=== PATIENT | male | born 1940 | race Caucasian/White ===

== ENCOUNTER 2016-10-21 07:36 | Inpatient (IN) | payer BC, OTHER ==
[~2016-10-21] VITALS: Ht 162.6 cm; Wt 59.4 kg
[~2016-10-21 07:36] MED LIST: ASPI81TA28 PO; ATEN-173 PO; MULT-190 PO; MULT-839 PO; PRLSR20 PO; VTMD1000 PO
--- NOTE | 2016-10-21 08:00 | EMERGENCY ROOM VISIT NOTE ---
History Report prepared by Iris: Ronaldo Bravo Under the Supervision of: Dr. Mirza Koch M.D. First contact with patient: 07:44 Chief Complaint: RECTAL BLEEDING Stated Complaint: BLOOD IN STOOL Nursing Triage Summary: Pt states he noticed dark tarry stools, started yesterday. History of Present Illness The patient is a 76 year old male who presents to the Emergency Room with complaints of rectal bleeding that occurred yesterday. He is currently not in any pain at the moment. He noticed black, tarry stools when he had a bowel movement yesterday. There was also blood in his stool as well. He is very chilled at the moment. He has never had a GI bleed before. He takes Aspirin everyday. He currently has a pacemaker/defibrillator in place. He needs to have his gallbladder removed, but he cannot secondary to his heart's condition. Source of History: patient Onset: yesterday Position: other (GI) Symptom Intensity: moderate Quality: other (Blood in Stool) Timing: constant Associated Symptoms: + chills, + melena, No abdominal pain Review of Systems See HPI for pertinent positives & negatives. A total of 10 systems reviewed and were otherwise negative. Past Medical & Surgical Medical Problems: (1) GI bleed Surgical Problems: (1) History of open heart surgery Family History Omitted secondary to age Social History Smoking Status: Former Smoker Drug Use: none Marital Status: Housing Status: lives with family Occupation Status: retired Current/Historical Medications Scheduled Aspirin (Aspirin Ec), 81 MG PO DAILY Atorvastatin (Lipitor), 40 MG PO HS Cholecalciferol (Vitamin D3), 1 TAB PO DAILY Furosemide (Lasix), 20 MG PO DAILY Lisinopril (Zestril), 2.5 MG PO MWF Metoprolol Succinate (Toprol Xl), 25 MG PO HS Multivitamin (Multivitamin), 1 TAB PO DAILY Nitroglycerin (Nitro-Dur), 1 PATCH TD ONAMOFFPM Ocuvite Preservision (Ocuvite Preservision), 1 TAB PO BID Omeprazole (Prilosec), 20 MG PO BID Sennosides-Docusate Sodium (Senna S), 2 TAB PO HS Spironolactone (Aldactone), 25 MG PO DAILY Allergies Coded Allergies: No Known Allergies (Unverified , 5/7/17) Physical Exam Vital Signs Date Time Temp Pulse Resp B/P Pulse Ox O2 Delivery O2 Flow Rate FiO2 10/21/16 08:33 72 16 163/66 98 Room Air 10/21/16 08:31 98 Room Air 10/21/16 07:39 36.4 101 20 116/57 97 Room Air Physical Exam GENERAL: Patient is a healthy-appearing well-nourished HEAD: Normocephalic atraumatic EYES: Ocular movements intact pupils equal and react to light OROPHARYNX mucous membranes are moist no exudates present no erythema or edema present NECK: Supple no nuchal rigidity CHEST: Good equal expansion LUNGS: Clear and equal to auscultation CARDIAC: Normal S1 and S2 ABDOMEN: Soft nontender no guarding BACK: No CVA tenderness RECTUM: Dark red blood, grossly positive. EXTREMITIES: No pain upon palpation normal muscle strength in all groups no clubbing cyanosis or edema NEURO: Patient is following commands is answering questions appropriately. Alert and oriented x3 Cranial Nerves 2-12 grossly intact Medical Decision & Procedures Laboratory Results 10/21/16 08:05 Red Blood Count 3.27, Mean Corpuscular Volume 88.1, Mean Corpuscular Hemoglobin 29.4, Mean Corpuscular Hemoglobin Concent 33.3, Mean Platelet Volume 10.8, Neutrophils (%) (Auto) 81.4, Lymphocytes (%) (Auto) 6.5, Monocytes (%) (Auto) 10.9, Eosinophils (%) (Auto) 0.6, Basophils (%) (Auto) 0.2, Neutrophils # (Auto ) 8.87, Lymphocytes # (Auto) 0.71, Monocytes # (Auto) 1.19, Eosinophils # (Auto ) 0.06, Basophils # (Auto) 0.02 10/21/16 08:05 Test 10/21/16 08:05 White Blood Count 10.89 K/uL (4.8-10.8) Red Blood Count 3.27 M/uL (4.7-6.1) Hemoglobin 9.6 g/dL (14.0-18.0) Hematocrit 28.8 % (42-52) Mean Corpuscular Volume 88.1 fL (80-100) Mean Corpuscular Hemoglobin 29.4 pg (25-34) Mean Corpuscular Hemoglobin Concent 33.3 g/dl (32-36) Platelet Count 212 K/uL (130-400) Mean Platelet Volume 10.8 fL (7.4-10.4) Neutrophils (%) (Auto) 81.4 % Lymphocytes (%) (Auto) 6.5 % Monocytes (%) (Auto) 10.9 % Eosinophils (%) (Auto) 0.6 % Basophils (%) (Auto) 0.2 % Neutrophils # (Auto) 8.87 K/uL (1.4-6.5) Lymphocytes # (Auto) 0.71 K/uL (1.2-3.4) Monocytes # (Auto) 1.19 K/uL (0.11-0.59) Eosinophils # (Auto) 0.06 K/uL (0-0.5) Basophils # (Auto) 0.02 K/uL (0-0.2) RDW Standard Deviation 48.6 fL (36.4-46.3) RDW Coefficient of Variation 15.3 % (11.5-14.5) Immature Granulocyte % (Auto) 0.4 % Immature Granulocyte # (Auto) 0.04 K/uL (0.00-0.02) Prothrombin Time 11.3 SECONDS (9.0-12.0) Prothromb Time International Ratio 1.1 (0.9-1.1) Activated Partial Thromboplast Time 24.7 SECONDS (21.0-31.0) Partial Thromboplastin Ratio 1.0 Anion Gap 9.0 mmol/L (3-11) Estimated GFR () 93.2 Estimated GFR (Non- 80.4 BUN/Creatinine Ratio 32.5 (10-20) Calcium Level 8.9 mg/dl (8.5-10.1) Total Bilirubin 0.3 mg/dl (0.2-1) Direct Bilirubin < 0.1 mg/dl (0-0.2) Aspartate Amino Transf (AST/SGOT) 18 U/L (15-37) Alanine Aminotransferase (ALT/SGPT) 19 U/L (12-78) Alkaline Phosphatase 70 U/L (45-117) Total Creatine Kinase 50 U/L (39-308) Creatine Kinase MB 3.1 ng/ml (0.5-3.6) Creatine Kinase MB Ratio 6.2 (0-3.0) Total Protein 6.8 gm/dl (6.4-8.2) Albumin 3.1 gm/dl (3.4-5.0) Lipase 335 U/L (73-393) Labs reviewed by ED physician. Medications Administered Medications (Trade) Dose Ordered Sig/Milton Route Start Time Stop Time Status Last Admin Dose Admin Pantoprazole Sodium 80 mg/ Dextrose 120 ml @ 480 mls/hr TODAY@0815 IV 10/21/16 08:15 10/21/16 08:29 DC 10/21/16 08:31 480 MLS/HR Pantoprazole Sodium/Dextrose (Protonix Inj/D5 100ml) 100 ml @ 20 mls/hr Q5H IV 10/21/16 08:30 10/21/16 13:29 DC 10/21/16 08:31 20 MLS/HR ECG Indication: weakness Rate (beats per minute): 74 Rhythm: normal sinus Findings: no acute ischemic change, no ectopy ED Course 0744: Past medical records reviewed. The patient was evaluated in room B3. A complete history and physical examination was performed. 0758: Ordered Pantoprazole Sodium 1 ea IV 0815: Ordered Pantoprazole Sodium 80 mg/Dextrose 120 ml @ 480 mls/hr IV 0830: Ordered Pantoprazole Sodium 40 mg/Dextrose 100 ml @ 20 mls/hr IV 0906: Upon reexamination the patient is resting. I discussed results and treatment plan with the patient. He verbalizes agreement and understanding. I spoke with Dr. Cope from the [facility] Hospitalist Service. The patient will be evaluated for further management. Medical Decision Differential diagnosis: Etiologies such as diverticulosis, AVM, coagulopathy, colitis, inflammatory bowel disease, malignancy, Alma-Singh tear, esophagitis, peptic ulcer disease , variceal bleed, gastritis, epistaxis, fissure, hemorrhoids, as well as others were entertained. This is a 76-year-old who presents to the emergency department complaining of rectal bleeding. The patient reports she's had dark tarry stools for the last several days and he has a history of Alcala's esophagus. In addition the patient had prior red blood along with multiple clots. For this reason the patient was given normal saline bolus and started on a proton bolus and drip. His hemoglobin here is 9. He was typed and screened. I did discuss the case with the hospitalist service who agreed to admit the patient. Patient was in agreement with the treatment plan. Consults Time Called: 900 Consulting Physician: Dr. Prisca WANG Returned Call: [phone] He will be evaluating the patient for further management. Impression Primary Impression: Rectal bleed Scribe Attestation The scribe's documentation has been prepared under my direction and personally reviewed by me in its entirety. I confirm that the note above accurately reflects all work, treatment, procedures, and medical decision making performed by me. Departure Information Dispostion Being Evaluated By Hospitalist Referrals Payam Moser D.O. Pulmonary (PCP) Patient Instructions My [facility]
[2016-10-21] MEDS ORDERED: CHOL1000 PO (08:09)
[2016-10-21] MEDS ORDERED: MULT-190 PO (08:09)
[2016-10-21] MEDS ORDERED: MULT-506 PO (08:09)
[2016-10-21] MEDS ORDERED: SENN8.6T9 PO (08:09)
[2016-10-21] MEDS ORDERED: PANTOprazole INJ 80 MG in DEXTROSE 5% 100ML IV SCH (08:15)
[2016-10-21] MEDS ORDERED: PANTOprazole INJ 40 MG in DEXTROSE 5% 100ML IV SCH (08:30)
[2016-10-21 08:34] LABS: BASO % 0.2 %; BASO ABS # 0.02 K/uL (0-0.2); COMPLETE YES; EOS % 0.6 %; HEMATOCRIT 28.8 % (42-52); IG% 0.4 %; LYMPH % 6.5 %; LYMPH ABS # 0.71 K/uL (1.2-3.4); MEAN CELL VOLUME 88.1 fL (80-100); MEAN CORPUSCULAR HEMOGLOBIN 29.4 pg (25-34); MEAN CORPUSCULAR HGB CONC 33.3 g/dl (32-36); MEAN PLATELET VOLUME 10.8 fL (7.4-10.4); MONO % 10.9 %; NEUT % 81.4 %; PLATELET COUNT 212 K/uL (130-400); RED BLOOD COUNT 3.27 M/uL (4.7-6.1); WHITE BLOOD COUNT 10.89 K/uL (4.8-10.8)
[2016-10-21 08:52] LABS: CALCIUM 8.9 mg/dl (8.5-10.1)
[2016-10-21 08:54] LABS: ALT/SGPT 19 U/L (12-78); BLOOD UREA NITROGEN 30 mg/dl (7-18); BUN/CREATININE RATIO 32.5 (10-20); CARBON DIOXIDE 28 mmol/L (21-32); CHLORIDE 103 mmol/L (98-107); CREATININE 0.91 mg/dl (0.60-1.40); GLUCOSE 120 mg/dl (70-99); POTASSIUM 3.8 mmol/L (3.5-5.1); SODIUM 140 mmol/L (136-145)
[2016-10-21 08:58] LABS: ALKALINE PHOSPHATASE 70 U/L (45-117); AST/SGOT 18 U/L (15-37); CKMB/CK RATIO 6.2 (0-3.0)
[2016-10-21 08:59] LABS: INR 1.1 (0.9-1.1); PROTHROMBIN TIME (PATIENT) 11.3 SECONDS (9.0-12.0)
[2016-10-21] MEDS ORDERED: SPIR25TA PO (09:13)
[2016-10-21] MEDS ORDERED: LISI-789 PO (09:13)
[2016-10-21] MEDS ORDERED: ATOR-24 PO (09:13)
[2016-10-21] MEDS ORDERED: FURO-85 PO (09:13)
[2016-10-21] MEDS ORDERED: NITR0.2D16 TD (09:13)
[2016-10-21] MEDS ORDERED: METO25TA3 PO (09:13)
[2016-10-21] MEDS ORDERED: SENN-91 PO (09:13)
[2016-10-21] MEDS ORDERED: MAGNESIUM HYDROXIDE SUSP 30 ML UDC PO PRN (09:15)
[2016-10-21] MEDS ORDERED: ALUMINUM/MAGNESIUM/SIMETH (MAALOX MAX) 30 ML UDC PO PRN (09:15)
[2016-10-21] MEDS ORDERED: POLYETHYLENE (MIRALAX) 17 GM PACK PO PRN (09:15)
[2016-10-21 11:23] VITALS: BP 163/85; PULSE 74; TEMP 36.6; O2SAT 96; Ht 162.6 cm; Wt 59.4 kg
--- NOTE | 2016-10-21 11:58 | History and Physical ---
History & Physical Date & Time of Service: October 21, 2016 at 11:51 Chief Complaint: Gi Bleed Primary Care Physician: Odalis Thomas M.D. Past Medical/Surgical History Surgical Problems: (1) History of open heart surgery Status: Resolved Social History Smoking Status: Former Smoker Drug Use: none Marital Status: Occupational Status: retired Allergies Coded Allergies: No Known Allergies (Unverified , 10/21/16) Home Medications Scheduled Aspirin (Aspirin Ec), 81 MG PO DAILY Atorvastatin (Lipitor), 40 MG PO HS Cholecalciferol (Vitamin D3), 1 TAB PO DAILY Furosemide (Lasix), 20 MG PO DAILY Lisinopril (Zestril), 2.5 MG PO MWF Metoprolol Succinate (Toprol Xl), 25 MG PO HS Multivitamin (Multivitamin), 1 TAB PO DAILY Nitroglycerin (Nitro-Dur), 1 PATCH TD ONAMOFFPM Ocuvite Preservision (Ocuvite Preservision), 1 TAB PO BID Omeprazole (Prilosec), 20 MG PO BID Sennosides-Docusate Sodium (Senna S), 2 TAB PO HS Spironolactone (Aldactone), 25 MG PO DAILY Physical Exam Vital Signs Date Time Temp Pulse Resp B/P Pulse Ox O2 Delivery O2 Flow Rate FiO2 10/21/16 11:23 36.6 74 22 163/85 96 Room Air 10/21/16 10:28 72 16 164/83 100 10/21/16 09:34 73 16 173/82 99 Room Air 10/21/16 08:33 72 16 163/66 98 Room Air 10/21/16 08:31 98 Room Air 10/21/16 07:39 36.4 101 20 116/57 97 Room Air Diagnostics Laboratory Results Results Past 24 Hours Test 10/21/16 08:05 10/21/16 09:14 Range/Units White Blood Count 10.89 4.8-10.8 K/uL Red Blood Count 3.27 4.7-6.1 M/uL Hemoglobin 9.6 14.0-18.0 g/dL Hematocrit 28.8 42-52 % Mean Corpuscular Volume 88.1 80-100 fL Mean Corpuscular Hemoglobin 29.4 25-34 pg Mean Corpuscular Hemoglobin Concent 33.3 32-36 g/dl Platelet Count 212 130-400 K/uL Mean Platelet Volume 10.8 7.4-10.4 fL Neutrophils (%) (Auto) 81.4 % Lymphocytes (%) (Auto) 6.5 % Monocytes (%) (Auto) 10.9 % Eosinophils (%) (Auto) 0.6 % Basophils (%) (Auto) 0.2 % Neutrophils # (Auto) 8.87 1.4-6.5 K/uL Lymphocytes # (Auto) 0.71 1.2-3.4 K/uL Monocytes # (Auto) 1.19 0.11-0.59 K/uL Eosinophils # (Auto) 0.06 0-0.5 K/uL Basophils # (Auto) 0.02 0-0.2 K/uL RDW Standard Deviation 48.6 36.4-46.3 fL RDW Coefficient of Variation 15.3 11.5-14.5 % Immature Granulocyte % (Auto) 0.4 % Immature Granulocyte # (Auto) 0.04 0.00-0.02 K/uL Prothrombin Time 11.3 9.0-12.0 SECONDS Prothromb Time International Ratio 1.1 0.9-1.1 Activated Partial Thromboplast Time 24.7 21.0-31.0 SECONDS Partial Thromboplastin Ratio 1.0 Sodium Level 140 136-145 mmol/L Potassium Level 3.8 3.5-5.1 mmol/L Chloride Level 103 98-107 mmol/L Carbon Dioxide Level 28 21-32 mmol/L Anion Gap 9.0 3-11 mmol/L Blood Urea Nitrogen 30 7-18 mg/dl Creatinine 0.91 0.60-1.40 mg/dl Estimated GFR () 93.2 Estimated GFR (Non- 80.4 BUN/Creatinine Ratio 32.5 10-20 Random Glucose 120 70-99 mg/dl Calcium Level 8.9 8.5-10.1 mg/dl Total Bilirubin 0.3 0.2-1 mg/dl Direct Bilirubin < 0.1 0-0.2 mg/dl Aspartate Amino Transf (AST/SGOT) 18 15-37 U/L Alanine Aminotransferase (ALT/SGPT) 19 12-78 U/L Alkaline Phosphatase 70 45-117 U/L Total Creatine Kinase 50 39-308 U/L Creatine Kinase MB 3.1 0.5-3.6 ng/ml Creatine Kinase MB Ratio 6.2 0-3.0 Troponin I 0.017 0-0.045 ng/ml Total Protein 6.8 6.4-8.2 gm/dl Albumin 3.1 3.4-5.0 gm/dl Lipase 335 73-393 U/L Impression Assessment and Plan obs # [id number] extensive discussion with family - were exceedingly anxious about him surviving any procedures an repeatedly emphasized that he can't have anesthesia. explained that with what we're seeing now, management of the bleed is likely withholding asa an following, and that it would be quite unlikely that any procedures would be necessary. extensive time discussing with family, answered all questions to the best of my ability and to their satisfaction Advanced Directives Existing Living Will: No Existing Power of Bdr: No VTE Prophylaxis VTE Risk Assessment Done? Y/N: Yes Risk Level: Moderate Given or contraindicated: Contraindicated
[2016-10-21] MEDS: NITROGLYCERIN 0.2 MG/HR PATCH TD SCH (12:00)
[2016-10-21] MEDS ORDERED: IV FLUIDS COMPLETED PRN (13:15)
--- NOTE | 2016-10-21 13:41 | HISTORY & PHYSICAL EXAMINATION ---
DATE OF ADMISSION: 10/21/2016 CHIEF COMPLAINT: Rectal bleeding. HISTORY OF PRESENT ILLNESS: The patient is a pleasant 76-year-old male accompanied by his family. It apparently started yesterday morning with black tarry bowel movement. Since that time, he has had probably 5 or more black tarry bowel movements and 1 was bright red blood with clots. He went to Urgent Care yesterday at the direction of his family. Urgent Care wanted him to come to the ER. He noted he felt fine, so he declined and then with this morning's bright red blood, the family brought him to the ER. Here, he was fortunately found to be hemodynamically stable. He has a hemoglobin of 9.6 with no clear baseline and because of the ongoing bleeding, we were asked to see him for ongoing evaluation and treatment. REVIEW OF SYSTEMS: Surprisingly negative. He does not feel weak, lightheaded, dizzy, or diaphoretic. His family notes that he looks a little pale. He does not seem to feel pale. He has no anginal symptoms. No chest pain, no chest pressure, and no shortness of breath. He has no abdominal pain, no nausea, no vomiting, and no hematemesis. He does note that the diarrhea this morning happened after he drank a Boost. He drank a Boost and shortly thereafter he had diarrhea. On directed questioning, he did not have nausea after this either. Review of systems is otherwise entirely negative except for as above. PAST MEDICAL HISTORY: Difficult to discern. 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 MEDICATIONS: Reviewed with the family and unfortunately, his home medication list does not have any doses on it. He takes an aspirin daily, Lipitor daily, vitamin D daily, Lasix daily, lisinopril daily, metoprolol XL daily, multivitamin daily, nitroglycerin patch daily, Ocuvite daily, omeprazole b.i.d., senna at bedtime, and spironolactone daily. PAST SURGICAL HISTORY: He had a heart catheterization done here showing a fairly severe coronary artery disease. He was sent to [facility], this is in 2014. It sounds like they tried to do a high risk stenting due to probably not being a viable candidate for CABG and to the best he knows, they were not able to stent or balloon any vessels, although again he is surprisingly unclear on this. He has had a pacer defibrillator placed, colonoscopy about 7 years ago they believe was clean and an EGD showing Alcala's esophagus. 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 He is . He lives with his . He has a very supportive family. FAMILY HISTORY: His mom and dad both of "heart." Mom at 90 and dad at 79. ALLERGIES: No known drug allergies. PHYSICAL EXAMINATION: VITAL SIGNS: His initial vitals showed a temp of 36.4, pulse of 101 that quickly dropped into the 70s where it has been for the last 4 hours, respiratory rate 20, blood pressure 116/57 initially and then later bumps into the 160s systolic and has been in the 160-170 systolic range since. His diastolics between 66 and 85 and he is 97%-100% on room air. GENERAL: He is awake, alert, and oriented x3, pleasant, in no acute distress. HEENT: Normocephalic, atraumatic. Mucous membranes are moist. CARDIOVASCULAR: Regular without rubs, murmurs, or gallops. LUNGS: Clear to auscultation bilaterally. No rales, rhonchi, or wheezes with good effort. ABDOMEN: Soft, nondistended, and nontender, no masses or organomegaly. EXTREMITIES: Without cyanosis, clubbing or edema. No calf tenderness. SKIN: Shows no rashes, no pallor or icterus. NEUROLOGIC: Shows cranial nerves II through XII to be grossly intact. Gross motor and sensory are intact. MUSCULOSKELETAL: Yields no gross lesions. MENTAL STATUS: Shows fair recent and remote recall. Normal mood and affect. Fair judgment and insight. LABS AND DIAGNOSTICS: His CBC shows a white count of 10.89 with a hemoglobin of 9.6, uncertain baseline. His MCV is 88.1 and platelets of 212. Complete metabolic panel with sodium 140, potassium 3.8, chloride 103, CO2 of 28, BUN 30, creatinine 0.91, calcium 8.9, and glucose 120. Total bili 0.3 with a direct of less than 0.1, AST 18, ALT 19, and alkaline phosphatase 70. CK total was 50 with an MB of 3.1. Troponin 0.017. Total protein 6.8, albumin 3.1, and lipase 335. PT of 11.3 and PTT 24.7. EKG appears to be sinus at 74, probably borderline LVH, no ischemic changes. Does have nonspecific T-wave flattening in aVL. ASSESSMENT AND PLAN: 1. Gastrointestinal bleed. Given his absolute lack of nausea, vomiting, abdominal pain, abdominal tenderness to palpation and his overall hemodynamic stability, this appears to be almost certainly a lower GI bleed, with the pattern of bleeding, it is most likely diverticular versus less likely arteriovenous malformation versus even less likely malignant related. For now we will hold his aspirin, get 2 IV sites, have him typed and screened, follow him clinically and follow his hemoglobin. Fortunately, at this point after the bleeding has been going on for 24 hours, he appears to be very stable, so I suspect this will resolve simply with stopping his aspirin and at this point there are no indications for any interventions. We discussed the typical role of a followup colonoscopy mostly to rule out malignancy and less important to look at the site of the bleeding if possible, but discussed that given his severity of heart disease, it may or may not be in his benefit, particularly given that he had a scope with no signs of malignancy, just 7 years ago and also because of the fact that even if it was bleeding from a malignancy he almost certainly would not be able to tolerate any further workup or treatment. He and the family expressed good understanding of this. We will be keeping him med-surge, clear liquid diet for now and then once he is showing good stability probably advance him to a low-fat diet hopefully by as soon as this evening. Follow hemoglobin q. 6 hours, follow his vitals, follow his clinical status. What will be difficult is with his severe coronary disease deciding when it is most appropriate to resume the aspirin, at this point in time, though it needs to be held. 2. Severe coronary disease, continue his home meds, hopefully will be able to get a hold of what his actual doses are, except for obviously as above, holding off on the aspirin until it is safe to resume. I discussed with the patient and family that given his coronary disease, probably somewhere in a few days to a few weeks from now the aspirin will need to at least have a trial of resumption, but at that point in time, it is also possible he could have recurrent bleeding, but this will be determined as he continues to progress. 3. Severe systolic ischemic cardiomyopathy with chronic appearing to be compensated congestive heart failure. Given that he has got a good heart rate and good blood pressure I will not be doing IV fluids right now. If there becomes a need for transfusion obviously, we will need to watch him closely. Right now he does appear to be compensated, so we will continue all of his home meds in this regard. 4. Chronic cholecystitis. He notes very clearly that he is too ill for any anesthesia right now. Fortunately, he does not appear to be decompensated with this, his belly not tender. He is not having any nausea, vomiting, abdominal pain. We did discuss the possibility of evaluation with cholecystostomy tube should the situation worsen, but right now it appears that nothing other than going to a low-fat diet whenever he resumes diet would be warranted. 5. Apparent gastroesophageal reflux disease with Alcala's. Continue proton pump inhibitor. 6. Deep venous thrombosis prophylaxis. Pharmacologic is contraindicated due to his gastrointestinal bleeding. Mechanical prophylaxis is a very dubious benefit in VTE prevention and certainly may cause risk and skin breakdown and fall risk, will simply try to get him ambulating as quickly as is safe. 7. Anemia. It is hard to tell how much of this is acute blood loss and how much is chronic. We will be trending his hemoglobin, trying to get a hold of old records from his PCP to see where he normally runs. 8. Mild leukocytosis, likely demargination, it is barely above normal. 9. Prerenal azotemia. I suspect he probably runs chronically dry given his cardiomyopathy, obviously will continue to follow that.
[2016-10-21 15:41] VITALS: BP 151/78; PULSE 78; TEMP 36.7; O2SAT 97
[2016-10-21] MEDS: CEROVITE ADV FORMULA TAB PO SCH (21:00)
[2016-10-21 21:01] VITALS: BP 170/77; PULSE 72
[2016-10-21] MEDS: ATORVASTATIN 40 MG TAB PO SCH (21:01)
[2016-10-21] MEDS: DOCUSATE SODIUM/SENNA 50/8.6MG TAB PO SCH (21:02)
[2016-10-21] MEDS: METOPROLOL SUCC 25MG EXT REL TAB PO SCH (21:02)
[2016-10-21 21:05] LABS: URINE APPEARANCE CLEAR (CLEAR); URINE BILIRUBIN NEG (NEG); URINE COLOR YELLOW; URINE NITRITE NEG (NEG); URINE SPECIFIC GRAVITY 1.025 (1.000-1.030); UROBILINOGEN NEG (NEG)
[2016-10-21 21:08] LABS: MANUAL MICROSCOPIC REQUIRED? NO; REVIEW REQ? NO
[2016-10-21 23:08] VITALS: BP 153/84; PULSE 75; TEMP 36.4; O2SAT 97
[2016-10-22] VITALS (13 sets, daily range): BP systolic 118–178; BP diastolic 62–100; PULSE 71–88; TEMP 36–36.7; O2SAT 96–98
[2016-10-22] MEDS: ACETAMINOPHEN 325 MG TAB PO PRN ×2 (02:40→16:00)
[2016-10-22] MEDS: ONDANSETRON INJ 2 MG/ML 2 ML VIAL IV PRN ×2 (02:49→17:39)
[2016-10-22] MEDS: NITROGLYCERIN 0.2 MG/HR PATCH TD SCH (07:48)
[2016-10-22] MEDS: CHOLECALCIFEROL 1000 INTER.UNIT TAB PO SCH (07:48)
[2016-10-22] MEDS: MULTIVITAMIN TAB PO SCH (07:48)
[2016-10-22] MEDS: CEROVITE ADV FORMULA TAB PO SCH ×2 (07:49→20:55)
[2016-10-22 09:17] LABS: BUN/CREATININE RATIO 33.1 (10-20); CREATININE 0.98 mg/dl (0.60-1.40)
[2016-10-22 09:18] LABS: CALCIUM 7.9 mg/dl (8.5-10.1)
[2016-10-22] MEDS ORDERED: PANTOprazole INJ 80 MG in DEXTROSE 5% 100ML IV ONE (14:30)
[2016-10-22] MEDS: PANTOprazole INJ 40 MG in DEXTROSE 5% 100ML IV SCH ×2 (14:50→19:43)
[2016-10-22] MEDS ORDERED: FUROSEMIDE INJ 20 MG in SYRINGE 0 ML IV SCH (15:00)
--- NOTE | 2016-10-22 17:27 | Progress Note ---
Subjective Date of Service: October 22, 2016. Subjective Pt evaluation today including: conversation w/ patient, physical exam, lab review Problem List Medical Problems: (1) Rectal bleed Status: Acute Review of Systems Constitutional: No chills, No fatigue, No fever, No problem reported, No see HPI, No sweats, No weakness, No weight loss Eyes: No diplopia, No discharge, No eye pain, No problem reported, No redness, No see HPI, No worsening of vision ENT: No dental problems, No hearing loss, No nasal symptoms, No problem reported, No see HPI, No sore throat, No tinnitus, No trouble swallowing, No unusual epistaxis Respiratory: No cough, No dyspnea at rest, No dyspnea on exertion, No hemoptysis, No problem reported, No see HPI, No shortness of breath, No sputum, No wheezing Cardiac: No PND, No chest pain, No claudication, No edema, No orthopnea, No palpitations, No problem reported, No see HPI Abdomen: + GI bleeding, No constipation, No diarrhea, No nausea, No pain, No problem reported, No see HPI, No vomiting Musculoskeletal: No calf pain, No joint pain, No muscle pain, No problem reported, No see HPI, No swelling Male : No dysuria, No hematuria, No incontinence, No nocturia more than once/ night, No problem reported, No see HPI, No sexual dysfunction, No slowing stream , No urinary frequency Neurologic: No balance problems, No memory loss, No numbness/tingling, No paralysis, No problem reported, No see HPI, No vertigo, No weakness Psychiatric: No anhedonism, No anxiety, No depression symptoms, No insomnia, No problem reported, No see HPI, No substance abuse Heme: No abnormal bleeding/bruising, No clotting problems, No night sweats, No problem reported, No see HPI, No swollen lymph nodes Endo: No excessive thirst, No excessive urination, No fatigue, No problem reported, No see HPI Skin: No bleeding, No color change, No itch, No new/changing skin lesions, No problem reported, No rash, No see HPI Medications Current Inpatient Medications Medications (Trade) Dose Ordered Sig/[place] Route Start Time Stop Time Status Last Admin Dose Admin Acetaminophen (Tylenol Tab) 650 mg Q4H PRN PO 10/21/16 09:15 11/20/16 09:14 10/22/16 16:00 650 MG Al Hydrox/Mg Hydrox/Simethicone (Maalox Max Susp) 15 ml Q4H PRN PO 10/21/16 09:15 11/20/16 09:14 Magnesium Hydroxide (Milk Of Magnesia Susp) 30 ml Q6H PRN PO 10/21/16 09:15 11/20/16 09:14 Polyethylene (Miralax Powder Packet) 17 gm DAILY PRN PO 10/21/16 09:15 11/20/16 09:14 Ondansetron HCl (Zofran Inj) 4 mg Q6H PRN IV 10/21/16 09:15 11/20/16 09:14 10/22/16 02:49 4 MG Atorvastatin Calcium (Lipitor Tab) 40 mg HS PO 10/21/16 21:00 11/20/16 20:59 10/21/16 21:01 40 MG Cholecalciferol (Vitamin D Tab) 1,000 inter.unit DAILY PO 10/22/16 08:00 11/21/16 08:59 10/22/16 07:48 1,000 INTER.UNIT Metoprolol Succinate (Toprol Xl Tab) 25 mg HS PO 10/21/16 21:00 11/20/16 20:59 10/21/16 21:02 25 MG Multivitamins (Multivitamin Tab) 1 tab DAILY PO 10/22/16 08:00 11/21/16 08:59 10/22/16 07:48 1 TAB Nitroglycerin (Nitro-Dur 0.2 Mg/Hr Patch) 1 patch DAILY TD 10/21/16 11:30 11/20/16 11:29 10/22/16 07:48 1 PATCH Multivitamins/ Minerals (Multivitamin W/ Minerals Tab) 1 tab BID PO 10/21/16 20:00 11/20/16 20:59 10/22/16 07:49 1 TAB Senna/Docusate Sodium (Senokot S Tab) 2 tab HS PO 10/21/16 21:00 11/20/16 20:59 10/21/16 21:02 2 TAB Miscellaneous (Remove Nitro-Dur Patch) 1 ea DAILY@21 N/A 10/21/16 21:00 11/20/16 20:59 10/21/16 21:04 1 EA Miscellaneous 1 ea 1 ea PRN PRN N/A 10/21/16 13:15 10/21/17 13:14 Pantoprazole Sodium 40 mg/ Dextrose 100 ml @ 20 mls/hr Q5H IV 10/22/16 14:45 11/21/16 14:44 10/22/16 14:50 20 MLS/HR Furosemide/Syringe (Lasix Inj/ Syringe) 2 ml @ 4 mls/min TODAY@1500 IV 10/22/16 15:00 10/22/16 23:59 Objective Vital Signs Date Time Temp Pulse Resp B/P Pulse Ox O2 Delivery O2 Flow Rate FiO2 10/22/16 17:00 36.6 78 18 167/100 98 10/22/16 16:30 36.5 83 18 150/89 97 10/22/16 16:15 36.6 76 18 155/92 98 10/22/16 16:01 36.0 87 18 178/95 96 10/22/16 15:35 36.6 85 20 150/82 97 Room Air 10/22/16 08:30 Room Air 10/22/16 07:52 36.5 86 18 127/80 98 Room Air 10/22/16 05:06 36.3 84 18 118/68 97 Room Air 10/22/16 00:52 Room Air 10/21/16 23:08 36.4 75 20 153/84 97 Room Air 10/21/16 21:01 72 170/77 10/21/16 20:00 Room Air Physical Exam General Appearance: no apparent distress Eyes: normal inspection, EOMI ENT: normal ENT inspection, hearing grossly normal, TMs normal, pharynx normal Neck: supple Respiratory/Chest: chest non-tender, lungs clear, normal breath sounds, no respiratory distress, no accessory muscle use Cardiovascular: regular rate, rhythm, no edema, no gallop, no JVD, no murmur Abdomen: normal bowel sounds, non tender, soft, no organomegaly Extremities: normal range of motion, non-tender, normal inspection, no pedal edema Neurologic/Psychiatric: drugless doctor II-XII nml as tested, no motor/sensory deficits, alert, normal mood/affect, oriented x 3 Skin: + pallor Laboratory Results Last 24 Hours Test 10/21/16 20:20 10/22/16 08:33 Hemoglobin 8.2 g/dL 8.3 g/dL Sodium Level 138 mmol/L Potassium Level 4.0 mmol/L Chloride Level 101 mmol/L Carbon Dioxide Level 27 mmol/L Anion Gap 10.0 mmol/L Blood Urea Nitrogen 32 mg/dl Creatinine 0.98 mg/dl Est Creatinine Clear Calc Drug Dose 52.0 ml/min Estimated GFR () 85.2 Estimated GFR (Non- 73.6 BUN/Creatinine Ratio 33.1 Random Glucose 164 mg/dl Calcium Level 7.9 mg/dl Assessment and Plan Gastrointestinal bleed / persistent with melena today Acute blood loss anemia / Hgb drop from 9.6 on admission to 8.3 Chronic systolic ischemic cardiomyopathy, not in exacerbation CAD Hx of valvular disease S/P valvuloplasty Chronic cholecystitis GERD Mild leukocytosis Plan: Type / cross and transfuse one unit of PRBCs Consult GI Consult surgical scheduler for clearance PPI bolus then drip one dose of pepcid Clear liquids then NPO from midnight SCD boot for DVT prophylaxis continue home meds except ASA and plavix D/W GI , ok to see tomorrow 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
[2016-10-22] MEDS ORDERED: MoRPHine SULFATE 2 MG/ML CARP IV PRN (17:30)
[2016-10-22] MEDS ORDERED: FAMOTIDINE IV INJ 20 MG in DEXTROSE 5% 100ML 100 ML IV ONE (19:30)
[2016-10-22 19:43] LABS: HEMATOCRIT 27.9 % (42-52)
[2016-10-22] MEDS: ATORVASTATIN 40 MG TAB PO SCH (20:54)
[2016-10-22] MEDS: DOCUSATE SODIUM/SENNA 50/8.6MG TAB PO SCH (20:55)
[2016-10-22] MEDS: METOPROLOL SUCC 25MG EXT REL TAB PO SCH (20:55)
[2016-10-23] VITALS (13 sets, daily range): BP systolic 150–181; BP diastolic 71–93; PULSE 71–86; TEMP 36.2–36.9; O2SAT 95–99
[2016-10-23] MEDS: PANTOprazole INJ 40 MG in DEXTROSE 5% 100ML IV SCH ×5 (00:41→20:40)
[2016-10-23 06:02] LABS: BASO % 0.2 %; BASO ABS # 0.02 K/uL (0-0.2); EOS % 1.4 %; IG% 0.5 %; LYMPH % 12.4 %; LYMPH ABS # 1.46 K/uL (1.2-3.4); MEAN CELL VOLUME 86.7 fL (80-100); MEAN CORPUSCULAR HGB CONC 33.5 g/dl (32-36); MEAN PLATELET VOLUME 11.1 fL (7.4-10.4); NEUT % 75.5 %; PLATELET COUNT 196 K/uL (130-400); WHITE BLOOD COUNT 11.81 K/uL (4.8-10.8)
[2016-10-23 06:26] LABS: COMPLETE YES
[2016-10-23 06:32] LABS: BUN/CREATININE RATIO 38.2 (10-20); CALCIUM 8.1 mg/dl (8.5-10.1); CREATININE 0.92 mg/dl (0.60-1.40); MAGNESIUM 2.3 mg/dl (1.8-2.4); POTASSIUM 3.6 mmol/L (3.5-5.1)
[2016-10-23 06:35] LABS: ALB/GLOB RATIO 0.9 (0.9-2); PHOSPHORUS 2.8 mg/dl (2.5-4.9)
[2016-10-23] MEDS: CEROVITE ADV FORMULA TAB PO SCH ×2 (08:52→20:42)
[2016-10-23] MEDS: CHOLECALCIFEROL 1000 INTER.UNIT TAB PO SCH (08:52)
[2016-10-23] MEDS: MULTIVITAMIN TAB PO SCH (08:52)
[2016-10-23] MEDS: NITROGLYCERIN 0.2 MG/HR PATCH TD SCH (09:11)
--- NOTE | 2016-10-23 10:27 | Gastrointestinal Consultation ---
Gastrointestinal Consultation Date of Consultation: October 23, 2016 Attending Physician: Dr. Pretty Ch Consulting Physician: Dr. Bert Neil Reason for Consultation: GI Bleed History of Present Illness Patient is a 76 year old male patient of Dr. Thomas with a hx of CHF, EF 10%, who presented to an Urgent Care then the ED for Melena, hematochezia. GI is consulted for a GI bleed. The patient is seen and examined while he is resting in bed on a Medical Surgical Unit. His is with him. they report loose, "sticky" BMs that are mostly black, with some bright red blood. These BMs began on Saturday or maybe a few days prior and have persisted. Hb on arrival was 9.6. He received a unit of RBCs and Hb today is 8.7. BUN 35, Cr 0.9. The pt denies any epigastric pain, nausea, pressure or burning. He is on Omeprazole BID. He takes one 81mg ASA daily and denies any other NSAID use. He is not on any anticoagulants. He denies any lightheadedness, dizziness or chest pain. According to the patient's nurse and the patient's , he was seen by cardiology this morning with OK to go forward with endoscopy. Past Medical/Surgical History Medical Problems: (1) Rectal bleed Status: Acute Past Medical History: 1. CHF, CAD, EF 10% 2. [place]'s 3. Chronic Cholecystitis Past Surgical History: 1. Heart Cath 2. Cardiac pacer defibrillator 3. Colonoscopy approx 7 yrs ago 4. EGD Social History Smoking Status: Former Smoker Drug Use: none Marital Status: Housing Status: lives with family Occupation Status: retired Allergies Coded Allergies: No Known Allergies (Unverified , 10/21/16) Current Medications Home Meds and Scripts Medications Dose Route/Sig Max Daily Dose Days Date Category Dose Instructions Senna S (Sennosides-Docusate Sodium) 1 Tab Tab 2 Tab PO HS 10/21/16 Reported Zestril (Lisinopril) 2.5 Mg Tab 2.5 Mg PO MWF 10/21/16 Reported Nitro-Dur (Nitroglycerin) 0.2 Mg/Hr Dis 1 Patch TD ONAMOFFPM 10/21/16 Reported Lasix (Furosemide) 20 Mg Tab 20 Mg PO DAILY 10/21/16 Reported Lipitor (Atorvastatin Calcium) 40 Mg Tab 40 Mg PO HS 10/21/16 Reported Aldactone (Spironolactone) 25 Mg Tab 25 Mg PO DAILY 10/21/16 Reported Take at bedtime Toprol Xl (Metoprolol Succinate) 25 Mg Tabcr 25 Mg PO HS 10/21/16 Reported Multivitamin (Multivitamins) Tab 1 Tab PO DAILY 10/21/16 Reported Ocuvite Preservision (Multivitamins/Minerals) 1 Tab Tab 1 Tab PO BID 10/21/16 Reported Vitamin D3 (Cholecalciferol) 1,000 Inter.unit Tab 1 Tab PO DAILY 11/23/13 Reported Prilosec (Omeprazole) 20 Mg Capcr 20 Mg PO BID 11/23/13 Reported Aspirin Ec (Aspirin) 81 Mg Tab 81 Mg PO DAILY 11/23/13 Reported Review of Systems Constitutional: No chills, No fever, No sweats, No weakness, No weight loss Eyes: No eye pain, No redness ENT: No pain on swallowing, No sore throat, No trouble swallowing Respiratory: No cough, No dyspnea on exertion, No shortness of breath, No wheezing Cardiac: No chest pain, No edema, No palpitations Abdomen: + GI bleeding, + diarrhea, + see HPI, No constipation, No nausea, No pain, No vomiting Neuro: No balance problems, No memory loss, No numbness/tingling, No vertigo, No weakness Psych: No anxiety, No depression symptoms, No insomnia Heme: No abnormal bleeding/bruising, No night sweats Endo: No excessive thirst, No excessive urination Skin: No itch, No jaundice, No new/changing skin lesions, No rash Physical Exam Date Time Temp Pulse Resp B/P Pulse Ox O2 Delivery O2 Flow Rate FiO2 10/23/16 08:57 36.9 71 14 167/93 95 Room Air 10/23/16 04:10 36.9 71 14 167/93 95 Room Air 10/23/16 04:05 Room Air 10/23/16 03:54 36.4 84 20 170/92 97 Room Air 10/23/16 00:05 Room Air 10/22/16 23:45 36.4 71 20 172/95 97 10/22/16 20:37 36.3 88 146/80 98 Room Air 10/22/16 20:00 Room Air 10/22/16 19:25 36.7 76 20 174/87 96 Room Air 10/22/16 18:30 36.4 78 18 160/78 98 10/22/16 17:30 36.5 72 18 158/62 97 10/22/16 17:00 36.6 78 18 167/100 98 10/22/16 16:30 36.5 83 18 150/89 97 10/22/16 16:15 36.6 76 18 155/92 98 10/22/16 16:01 36.0 87 18 178/95 96 10/22/16 16:00 97 Room Air 10/22/16 15:35 36.6 85 20 150/82 97 Room Air General Appearance: no apparent distress Eyes: normal inspection, EOMI Neck: supple, no adenopathy, thyroid normal, no JVD Respiratory/Chest: chest non-tender, lungs clear, normal breath sounds, no accessory muscle use Cardiovascular: regular rate, rhythm, no JVD, no murmur Abdomen: normal bowel sounds, non tender, soft, no organomegaly Extremities: normal inspection, no pedal edema, normal capillary refill Neurologic/Psych: alert, normal mood/affect, oriented x 3 Skin: normal color, no jaundice, warm/dry, no rash Laboratory Results Last 24 Hours Test 10/22/16 19:35 10/23/16 05:28 Hemoglobin 9.5 g/dL 8.7 g/dL Hematocrit 27.9 % 26.0 % White Blood Count 11.81 K/uL Red Blood Count 3.00 M/uL Mean Corpuscular Volume 86.7 fL Mean Corpuscular Hemoglobin 29.0 pg Mean Corpuscular Hemoglobin Concent 33.5 g/dl Platelet Count 196 K/uL Mean Platelet Volume 11.1 fL Neutrophils (%) (Auto) 75.5 % Lymphocytes (%) (Auto) 12.4 % Monocytes (%) (Auto) 10.0 % Eosinophils (%) (Auto) 1.4 % Basophils (%) (Auto) 0.2 % Neutrophils # (Auto) 8.92 K/uL Lymphocytes # (Auto) 1.46 K/uL Monocytes # (Auto) 1.18 K/uL Eosinophils # (Auto) 0.17 K/uL Basophils # (Auto) 0.02 K/uL RDW Standard Deviation 47.6 fL RDW Coefficient of Variation 15.3 % Immature Granulocyte % (Auto) 0.5 % Immature Granulocyte # (Auto) 0.06 K/uL Red Blood Cell Morphology Unremarkable Sodium Level 136 mmol/L Potassium Level 3.6 mmol/L Chloride Level 100 mmol/L Carbon Dioxide Level 29 mmol/L Anion Gap 7.0 mmol/L Blood Urea Nitrogen 35 mg/dl Creatinine 0.92 mg/dl Est Creatinine Clear Calc Drug Dose 55.4 ml/min Estimated GFR () 92.0 Estimated GFR (Non- 79.4 BUN/Creatinine Ratio 38.2 Random Glucose 135 mg/dl Calcium Level 8.1 mg/dl Phosphorus Level 2.8 mg/dl Magnesium Level 2.3 mg/dl Total Bilirubin 0.7 mg/dl Aspartate Amino Transf (AST/SGOT) 17 U/L Alanine Aminotransferase (ALT/SGPT) 18 U/L Alkaline Phosphatase 65 U/L Total Protein 6.4 gm/dl Albumin 3.0 gm/dl Globulin 3.4 gm/dl Albumin/Globulin Ratio 0.9 Impression Patient is a 76 year old male with melena, hematochezia. He remains hemodynamically stable, though decrease in Hb to 8.7 from 9.6 and is S/P one unit or RBCs. Plan: 1. EGD today. 2. Further recommendations to follow EGD. Plan I saw and evaluated the patient with Ms. Fang. GI is consulted due to recurrent Melena ongoing for 3 to 4 days. 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 Last egd several years ago notable for barretts esophagus. additional symptoms include intermitant solid food dsyphagia. We have discussed the risks of EGD to include bleeding, infection, apsiration, perforation, pain, and cardiac/ pulmonary complications. Plan EGD today
[2016-10-23] MEDS ORDERED: PROPOFOL IV EMULSION 10 MG/ML 20 ML VIAL IV ONE (10:28)
[2016-10-23] MEDS ORDERED: LIDOCAINE HCL 2% 2 ML VIAL (20MG/ML) ONE (10:28)
[2016-10-23] MEDS ORDERED: FENTANYL CITRATE INJ 50 MCG/1 ML 2 ML VIAL ONE (10:43)
--- NOTE | 2016-10-23 11:00 | GI REPORT ---
Procedure Date: 10/23/2016 10:30 AM Procedure: Upper GI endoscopy Indications: Dysphagia, Melena Medicines: Monitored Anesthesia Care Complications: No immediate complications. Estimated blood loss: Minimal. Estimated Blood Loss: Estimated blood loss was minimal. Procedure: Pre-Anesthesia Assessment: - Prior to the procedure, a History and Physical was performed, and patient medications, allergies and sensitivities were reviewed. The patient's tolerance of previous anesthesia was reviewed. - The risks and benefits of the procedure and the sedation options and risks were discussed with the patient. All questions were answered and informed consent was obtained. - Patient identification and proposed procedure were verified prior to the procedure by the physician, the nurse and the outreach consultant. The procedure was verified in the procedure room. - Pre-procedure physical examination revealed no contraindications to sedation. - ASA Grade Assessment: IV - A patient with severe systemic disease that is a constant threat to life. - After reviewing the risks and benefits, the patient was deemed in satisfactory condition to undergo the procedure. - The anesthesia plan was to use monitored anesthesia care (MAC). - Immediately prior to administration of medications, the patient was re-assessed for adequacy to receive sedatives. - The heart rate, respiratory rate, oxygen saturations, blood pressure, adequacy of pulmonary ventilation, and response to care were monitored throughout the procedure. - The physical status of the patient was re-assessed after the procedure. After obtaining informed consent, the endoscope was passed under direct vision. Throughout the procedure, the patient's blood pressure, pulse, and oxygen saturations were monitored continuously. The Scope was introduced through the mouth, and advanced to the second part of duodenum. The upper GI endoscopy was accomplished without difficulty. The patient tolerated the procedure well. Findings: The Z-line was irregular and was found 38 cm from the incisors. No endoscopic abnormality was evident in the esophagus to explain the patient's complaint of dysphagia. It was decided, however, to proceed with dilation of the entire esophagus. A guidewire was placed and the scope was withdrawn. Dilation was performed with a Savary dilator with no resistance at 48 Fr and 51 Fr. The endoscope was then reinserted to evaluate the success of the procedure. Estimated blood loss: none. A small hiatus hernia was found. The proximal extent of the gastric folds (end of tubular esophagus) was 39 cm from the incisors. The hiatal narrowing was 40 cm from the incisors. The Z-line was 38 cm from the incisors. The entire examined stomach was normal. The examined duodenum was normal. Impression: - Z-line irregular, 38 cm from the incisors. - No endoscopic esophageal abnormality to explain patient's dysphagia. Esophagus dilated to 51 Fr. - Small hiatal hernia - Normal stomach. - Normal examined duodenum. Recommendation: - Return patient to hospital heard for ongoing care. - Perform a colonoscopy at appointment to be scheduled. Bert eNil D.O. Bert Neil, DO 10/23/2016 11:00:13 AM This report has been signed electronically. Note Initiated On: 10/23/2016 10:30 AM I attest to the content of the Intraoperative Record and orders documented therein, exceptions below
--- NOTE | 2016-10-23 11:26 | Anesthesiology Progress Note ---
Anesthesia Post Op Note Date & Time October 23, 2016 at 11:26 Vital Signs Pain Intensity: 3 Vital Signs Past 12 Hours Date Time Temp Pulse Resp B/P Pulse Ox O2 Delivery O2 Flow Rate FiO2 10/23/16 11:09 76 20 160/77 99 Room Air 10/23/16 10:53 71 20 142/75 99 Room Air 10/23/16 10:24 36.9 88 24 140/79 98 Room Air 10/23/16 08:57 36.9 71 14 167/93 95 Room Air 10/23/16 08:00 Room Air 10/23/16 04:10 36.9 71 14 167/93 95 Room Air 10/23/16 04:05 Room Air 10/23/16 03:54 36.4 84 20 170/92 97 Room Air 10/23/16 00:05 Room Air 10/22/16 23:45 36.4 71 20 172/95 97 Notes Mental Status: alert / awake / arousable, participated in evaluation Pt Amnestic to Procedure: Yes Nausea / Vomiting: adequately controlled Pain: adequately controlled Airway Patency, RR, SpO2: stable & adequate BP & HR: stable & adequate Hydration State: stable & adequate Anesthetic Complications: no major complications apparent
[2016-10-23] MEDS ORDERED: LAVAGE SOLUTION 4000ML PO SCH (13:00)
--- NOTE | 2016-10-23 13:04 | Progress Note ---
Subjective Date of Service: October 23, 2016. Subjective Pt evaluation today including: conversation w/ patient, conversation w/ family , physical exam, chart review, lab review, conversation w/ windows consultant Problem List Medical Problems: (1) Rectal bleed Status: Acute Review of Systems Constitutional: No chills, No fatigue, No fever, No problem reported, No see HPI, No sweats, No weakness, No weight loss Eyes: No diplopia, No discharge, No eye pain, No problem reported, No redness, No see HPI, No worsening of vision ENT: No dental problems, No hearing loss, No nasal symptoms, No problem reported, No see HPI, No sore throat, No tinnitus, No trouble swallowing, No unusual epistaxis Respiratory: No cough, No dyspnea at rest, No dyspnea on exertion, No hemoptysis, No problem reported, No see HPI, No shortness of breath, No sputum, No wheezing Cardiac: No PND, No chest pain, No claudication, No edema, No orthopnea, No palpitations, No problem reported, No see HPI Abdomen: No GI bleeding, No constipation, No diarrhea, No nausea, No pain, No problem reported, No see HPI, No vomiting Musculoskeletal: No calf pain, No joint pain, No muscle pain, No problem reported, No see HPI, No swelling Male : No dysuria, No hematuria, No incontinence, No nocturia more than once/ night, No problem reported, No see HPI, No sexual dysfunction, No slowing stream , No urinary frequency Neurologic: No balance problems, No memory loss, No numbness/tingling, No paralysis, No problem reported, No see HPI, No vertigo, No weakness Psychiatric: No anhedonism, No anxiety, No depression symptoms, No insomnia, No problem reported, No see HPI, No substance abuse Heme: No abnormal bleeding/bruising, No clotting problems, No night sweats, No problem reported, No see HPI, No swollen lymph nodes Endo: No excessive thirst, No excessive urination, No fatigue, No problem reported, No see HPI Skin: No bleeding, No color change, No itch, No new/changing skin lesions, No problem reported, No rash, No see HPI Medications Current Inpatient Medications Medications (Trade) Dose Ordered Sig/Milton Route Start Time Stop Time Status Last Admin Dose Admin Acetaminophen (Tylenol Tab) 650 mg Q4H PRN PO 10/21/16 09:15 11/20/16 09:14 10/22/16 16:00 650 MG Al Hydrox/Mg Hydrox/Simethicone (Maalox Max Susp) 15 ml Q4H PRN PO 10/21/16 09:15 11/20/16 09:14 Magnesium Hydroxide (Milk Of Magnesia Susp) 30 ml Q6H PRN PO 10/21/16 09:15 11/20/16 09:14 Polyethylene (Miralax Powder Packet) 17 gm DAILY PRN PO 10/21/16 09:15 11/20/16 09:14 Ondansetron HCl (Zofran Inj) 4 mg Q6H PRN IV 10/21/16 09:15 11/20/16 09:14 10/22/16 17:39 4 MG Atorvastatin Calcium (Lipitor Tab) 40 mg HS PO 10/21/16 21:00 11/20/16 20:59 10/22/16 20:54 40 MG Cholecalciferol (Vitamin D Tab) 1,000 inter.unit DAILY PO 10/22/16 08:00 11/21/16 08:59 10/22/16 07:48 1,000 INTER.UNIT Metoprolol Succinate (Toprol Xl Tab) 25 mg HS PO 10/21/16 21:00 11/20/16 20:59 10/22/16 20:55 25 MG Multivitamins (Multivitamin Tab) 1 tab DAILY PO 10/22/16 08:00 11/21/16 08:59 10/22/16 07:48 1 TAB Nitroglycerin (Nitro-Dur 0.2 Mg/Hr Patch) 1 patch DAILY TD 10/21/16 11:30 11/20/16 11:29 10/23/16 09:11 1 PATCH Multivitamins/ Minerals (Multivitamin W/ Minerals Tab) 1 tab BID PO 10/21/16 20:00 11/20/16 20:59 10/22/16 20:55 1 TAB Senna/Docusate Sodium (Senokot S Tab) 2 tab HS PO 10/21/16 21:00 11/20/16 20:59 10/21/16 21:02 2 TAB Miscellaneous (Remove Nitro-Dur Patch) 1 ea DAILY@21 N/A 10/21/16 21:00 11/20/16 20:59 10/22/16 20:55 1 EA Miscellaneous 1 ea 1 ea PRN PRN N/A 10/21/16 13:15 10/21/17 13:14 Pantoprazole Sodium/Dextrose (Protonix Inj/D5 100ml) 100 ml @ 20 mls/hr Q5H IV 10/22/16 14:45 11/21/16 14:44 10/23/16 11:43 20 MLS/HR Morphine Sulfate (MoRPHine SULFATE INJ) 1 mg Q4H PRN IV 10/22/16 17:30 11/05/16 17:29 10/22/16 17:40 1 MG Polyethylene Glycol/ Electrolytes (Golytely Soln) 16 dose TODAY@1300 PO 10/23/16 13:00 10/23/16 23:59 Objective Vital Signs Date Time Temp Pulse Resp B/P Pulse Ox O2 Delivery O2 Flow Rate FiO2 10/23/16 12:24 76 20 139/76 97 Room Air 10/23/16 12:00 Room Air 10/23/16 11:49 36.9 71 18 160/80 97 Room Air 10/23/16 11:38 72 20 149/91 98 Room Air 10/23/16 11:24 72 20 155/72 99 Room Air 10/23/16 11:09 76 20 160/77 99 Room Air 10/23/16 10:53 71 20 142/75 99 Room Air 10/23/16 10:24 36.9 88 24 140/79 98 Room Air 10/23/16 08:57 36.9 71 14 167/93 95 Room Air 10/23/16 08:00 Room Air 10/23/16 04:10 36.9 71 14 167/93 95 Room Air 10/23/16 04:05 Room Air 10/23/16 03:54 36.4 84 20 170/92 97 Room Air 10/23/16 00:05 Room Air 10/22/16 23:45 36.4 71 20 172/95 97 10/22/16 20:37 36.3 88 146/80 98 Room Air 10/22/16 20:00 Room Air 10/22/16 19:25 36.7 76 20 174/87 96 Room Air 10/22/16 18:30 36.4 78 18 160/78 98 10/22/16 17:30 36.5 72 18 158/62 97 10/22/16 17:00 36.6 78 18 167/100 98 10/22/16 16:30 36.5 83 18 150/89 97 10/22/16 16:15 36.6 76 18 155/92 98 10/22/16 16:01 36.0 87 18 178/95 96 10/22/16 16:00 97 Room Air 10/22/16 15:35 36.6 85 20 150/82 97 Room Air Physical Exam General Appearance: WD/WN, no apparent distress Eyes: normal inspection, EOMI ENT: normal ENT inspection, hearing grossly normal Neck: supple Respiratory/Chest: chest non-tender, lungs clear, normal breath sounds, no respiratory distress, no accessory muscle use Cardiovascular: regular rate, rhythm, no edema, no gallop, no JVD, no murmur Abdomen: normal bowel sounds, non tender, soft, no organomegaly Extremities: normal range of motion, non-tender, normal inspection, no pedal edema Neurologic/Psychiatric: director of community services II-XII nml as tested, no motor/sensory deficits, alert, normal mood/affect, oriented x 3 Skin: normal color, warm/dry, no rash Laboratory Results Last 24 Hours Test 10/22/16 19:35 10/23/16 05:28 Hemoglobin 9.5 g/dL 8.7 g/dL Hematocrit 27.9 % 26.0 % White Blood Count 11.81 K/uL Red Blood Count 3.00 M/uL Mean Corpuscular Volume 86.7 fL Mean Corpuscular Hemoglobin 29.0 pg Mean Corpuscular Hemoglobin Concent 33.5 g/dl Platelet Count 196 K/uL Mean Platelet Volume 11.1 fL Neutrophils (%) (Auto) 75.5 % Lymphocytes (%) (Auto) 12.4 % Monocytes (%) (Auto) 10.0 % Eosinophils (%) (Auto) 1.4 % Basophils (%) (Auto) 0.2 % Neutrophils # (Auto) 8.92 K/uL Lymphocytes # (Auto) 1.46 K/uL Monocytes # (Auto) 1.18 K/uL Eosinophils # (Auto) 0.17 K/uL Basophils # (Auto) 0.02 K/uL RDW Standard Deviation 47.6 fL RDW Coefficient of Variation 15.3 % Immature Granulocyte % (Auto) 0.5 % Immature Granulocyte # (Auto) 0.06 K/uL Red Blood Cell Morphology Unremarkable Sodium Level 136 mmol/L Potassium Level 3.6 mmol/L Chloride Level 100 mmol/L Carbon Dioxide Level 29 mmol/L Anion Gap 7.0 mmol/L Blood Urea Nitrogen 35 mg/dl Creatinine 0.92 mg/dl Est Creatinine Clear Calc Drug Dose 55.4 ml/min Estimated GFR () 92.0 Estimated GFR (Non- 79.4 BUN/Creatinine Ratio 38.2 Random Glucose 135 mg/dl Calcium Level 8.1 mg/dl Phosphorus Level 2.8 mg/dl Magnesium Level 2.3 mg/dl Total Bilirubin 0.7 mg/dl Aspartate Amino Transf (AST/SGOT) 17 U/L Alanine Aminotransferase (ALT/SGPT) 18 U/L Alkaline Phosphatase 65 U/L Total Protein 6.4 gm/dl Albumin 3.0 gm/dl Globulin 3.4 gm/dl Albumin/Globulin Ratio 0.9 Assessment and Plan Gastrointestinal bleed / likely lower GI in origin Acute blood loss anemia / Hgb drop from 9.6 on admission to 8.3 Chronic systolic ischemic cardiomyopathy, not in exacerbation CAD Hx of valvular disease S/P valvuloplasty Chronic cholecystitis GERD Mild leukocytosis Plan: S/P EGD 10/23 result as below: Z-line irregular, 38 cm from the incisors. - No endoscopic esophageal abnormality to explain patient's dysphagia. Esophagus dilated to 51 Fr. - Small hiatal hernia - Normal stomach. - Normal examined duodenum. S/P transfused one unit of PRBCs Consult GI Consult analysis or research safety inspector for clearance appreciated continue PPI drip s/p one dose of pepcid Clear liquids then NPO from midnight SCD boot for DVT prophylaxis continue home meds except ASA and plavix
[2016-10-23 15:32] LABS: HEMATOCRIT 23.6 % (42-52)
--- NOTE | 2016-10-23 16:47 | CARDIOLOGY CONSULTATION ---
DATE OF CONSULTATION: 10/23/2016 REQUESTING: Dr. Olsen. SAFETY AND HEALTH CONSULTANT: Cooper Rojas D.O, [facility]. REASON FOR CONSULTATION: Preprocedure evaluation prior to EGD. Dear Dr. Olsen: Thank you for requesting cardiology consultation on Manohar with regards to plans for an upcoming EGD. As you know, he has a very complex past cardiac history which will be reviewed below. I last saw him in May and he had been very stable. He had not had any heart failure symptoms, his level of dyspnea was stable and he remained functional class 2 with regards to heart failure. He notes about a month ago he started having difficulty swallowing. He thought it was related to some virus. He actually ended up losing 7 pounds of weight and he notes the only thing he was able to eat or drink were liquid. He thought it was improving. He also had a setback with regards to cellulitis involving his arm and was on antibiotics. He notes over the weekend on Saturday that he had got up in the morning, went to take his morning medicines and then had a dark melenotic stool. He went to urgent care and was recommended he immediately come to the Emergency Room. He decided to stay home another day, but he continued to have bloody bowel movements, describing them as dark and tarry and maroonish in color. He denies any bright red blood per rectum. Here, he has continued to have melanotic bowel movements, his hemoglobin dropped, has been transfused. GI was consulted, he has been placed on a PPI drip and the plan is for endoscopy. He over the last couple of weeks denied any chest pain or chest pressure. He did note he was getting slightly more short of breath with activity, probably related to his anemia. He denied PND, orthopnea. He chronically sleeps in a recliner and this has been unchanged for years. He denies any lower extremity edema. His abdomen may be slightly more distended. He denies any abdominal pain. Denies any fevers, chills, sweats, cough, productive sputum. As described, his appetite has been very poor and his weight has declined substantially. He denies any fluttering or skips. He denies any ICD shocks. The rest of review of systems otherwise negative. PAST MEDICAL HISTORY: 1. Coronary artery disease status post coronary bypass grafting x1 with a HEMPHILL to the LAD November 2013. 2. Repeat cardiac catheterization in 2015 at [facility] with a patent HEMPHILL to the LAD and a reduced cardiac index. 3. Severe left ventricular dysfunction with the stroke volume of 45 mL, likely a combination of ischemic and nonischemic. 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 4. Status post single chamber [employer] Ellipse defibrillator March 2014. 5. History of significant alcohol abuse. 6. Hyperlipidemia. 7. History of inability to maintain his weight, which before this illness had stabilized. 8. Small sternal dehiscence for medical therapy. FAMILY HISTORY: His sister had heart failure. 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 He had at least 4 alcoholic beverages a day for 40 years. He stopped about 16 or 17 years ago. Previously, he smoked 4-5 cigars a day, stopping at a similar time. He is . He lives with his . ALLERGIES: No known drug allergies. MEDICATIONS: Reviewed in electronic medical record. PHYSICAL EXAMINATION: GENERAL: He is awake, alert, oriented x3. He does look chronically ill and looks worse today than when I last saw him. VITAL SIGNS: His heart rate is 71, blood pressure 167/93, respirations are 14, sat 95%. HEENT: Mildly reduced carotid upstrokes. No evidence of carotid bruits. Jugular venous pressure appeared flat. His sclerae is anicteric. His hearing is normal. LUNGS: Clear to auscultation bilaterally. No rales, rhonchi or wheezing. HEART: Regular rate and rhythm. No appreciable murmurs, rubs or gallops. ABDOMEN: Soft, mildly distended. Decreased bowel sounds. No rebound, guarding, rigidity. SKIN: He has decreased skin turgor in his lower extremities. No lower extremity edema. PSYCHIATRIC: His affect appeared appropriate. SKIN: He has some bruising on his forearms. DIAGNOSTIC STUDIES: Hemoglobin 8.7 this morning, down from 9.5 after his unit of blood. His platelet count is 196. His coags are normal. Sodium 136, potassium 3.6, BUN 35, creatinine 0.92. His lipase was normal. His troponins are normal. EKG: Normal sinus rhythm, left ventricular hypertrophy with secondary ST changes. IMPRESSION: 1. Preoperative evaluation prior to endoscopy secondary to a possible upper gastrointestinal bleed with melanotic stools and ongoing loss of blood even with transfusion. 2. Coronary artery disease, status post left internal mammary artery to left anterior descending artery November 2013. 3. 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 4. Status post single lead [employer] Ellipse defibrillator March. 5. History of difficulty maintaining his weight. As I discussed with Manohar and his family, he needs to have this endoscopy, especially in light of his ongoing bleeding. I discussed with him usually endoscopy is low risk even with substantial cardiac disease. In his case, the risk of having a heart attack is incredibly small and the risk of dying is small. I believe his greatest risk is that of heart failure and arrhythmias. He does have a defibrillator in, his defibrillator should not need to be reprogrammed prior to the endoscopy nor afterwards as there should not be any cautery in the vicinity of his defibrillator. From a heart failure standpoint, he has been clinically stable for an extended period of time and has had no heart failure admissions. I would be judicious with his fluids, especially if he receives blood products, he will likely need diuretics, although his skin turgor currently looks somewhat dry. I believe his risk with endoscopy is in the range of 3% to 4%. This includes heart attack, dying from cardiac causes, arrhythmias and congestive heart failure. His blood pressure is elevated here, likely some of this is the stress of being in the hospital. He did receive 25 mg of Toprol last night. He is currently n.p.o. I would consider increasing that to 25 mg b.i.d. If he is going to remain n.p.o. after the endoscopy, then I would switch him over to IV Lopressor 2.5 mg IV q.6 hours. We will continue to follow him with you. Thank you for allowing us to participate in his care.
[2016-10-23] MEDS: ATORVASTATIN 40 MG TAB PO SCH (20:41)
[2016-10-23] MEDS: METOPROLOL SUCC 25MG EXT REL TAB PO SCH (20:42)
[2016-10-23] MEDS: DOCUSATE SODIUM/SENNA 50/8.6MG TAB PO SCH (20:42)
[2016-10-24] VITALS (11 sets, daily range): BP systolic 137–172; BP diastolic 57–87; PULSE 55–82; TEMP 36.4–36.9; O2SAT 94–99
[2016-10-24] MEDS: PANTOprazole INJ 40 MG in DEXTROSE 5% 100ML IV SCH ×4 (01:32→17:49)
[2016-10-24] MEDS ORDERED: NITROGLYCERIN 0.4 MG SL PER TAB CHARGE SL STA (04:00)
--- NOTE | 2016-10-24 04:17 | Progress Note ---
Progress Note Date of Service October 24, 2016. Progress Note Patient with extensive cardiac history. Off of aspirin and plavix due to ongoing GI bleed. Called by RN due to patient having chest pain. He reports occasionally having this pain relived by 2-3 nitroglycerin tablets. Current pain ongoing for 30 minutes when seen and was awaiting stat EKG. VS stable. Having ongoing melena today increased with golytely Airway - patent Breathing - Saturations 98% on 2L, RR18-20, b/l breath sounds without crackles or wheezing anteriorly. CXR stat ordered. Circulation - good peripheral pulses, HS inaudible, HR 86, BP 164/76, cap refil <2 s, I&Os +98ml in last 8 hours. Stat labs CBC, BMP, Troponin (serial), 2 units blood on hold. D - GCS 15 E - nitroglycerin x2 given for chest pain which relieved the pain but now having neck pain which he reports is a chronic issue and relieved with massaging. Plan - may need nitro paste for chest pain - rule out anemia with stat labs - CXR to assess for pulmonary edema - check electrolytes (K + Mg) Plan discussed with Dr Pereira who also came to evaluate patient
[2016-10-24 04:43] LABS: BASO % 0.1 %; BASO ABS # 0.01 K/uL (0-0.2); EOS % 1.2 %; HEMATOCRIT 24.2 % (42-52); IG% 0.4 %; LYMPH % 6.8 %; LYMPH ABS # 0.92 K/uL (1.2-3.4); MEAN CELL VOLUME 88.3 fL (80-100); MEAN CORPUSCULAR HEMOGLOBIN 32.1 pg (25-34); MEAN PLATELET VOLUME 10.9 fL (7.4-10.4); MONO % 15.7 %; NEUT % 75.8 %; PLATELET COUNT 177 K/uL (130-400); RED BLOOD COUNT 2.74 M/uL (4.7-6.1); WHITE BLOOD COUNT 13.49 K/uL (4.8-10.8)
[2016-10-24 04:48] LABS: COMPLETE YES; MEAN CORPUSCULAR HGB CONC 36.4 g/dl (32-36)
[2016-10-24 05:03] LABS: POLYCHROMASIA 1+; ROULEAUX 1+
[2016-10-24 05:12] LABS: BUN/CREATININE RATIO 29.5 (10-20); CALCIUM 7.8 mg/dl (8.5-10.1); CKMB/CK RATIO 6.5 (0-3.0); CREATININE 0.78 mg/dl (0.60-1.40); MAGNESIUM 1.9 mg/dl (1.8-2.4); POTASSIUM 3.1 mmol/L (3.5-5.1)
[2016-10-24] MEDS ORDERED: MAGNESIUM SULFATE 1GM / D5W 1 GM in PREMIXED IN D5W 100 ML IV STA (05:51)
[2016-10-24] MEDS: POTASSIUM CHLR 10 MEQ / WTR 10 MEQ in PREMIXED WATER 100 ML IV SCH ×2 (06:15→07:49)
[2016-10-24 06:53] LABS: HEMATOCRIT 24.3 % (42-52)
--- NOTE | 2016-10-24 07:45 | DIAGNOSTIC IMAGING REPORT ---
CHEST ONE VIEW PORTABLE CLINICAL HISTORY: Acute shortness of breath COMPARISON STUDY: Chest CT November 20, 2013. FINDINGS: There is a single lead left subclavian pacemaker/AICD and median sternotomy wires. There is no pneumothorax. There is a suspected trace left pleural effusion. Pulmonary vascularity is normal. No consolidation is identified. Cardiomediastinal silhouette is stable. IMPRESSION: 1. Suspected trace left pleural effusion. 2. No evidence of pulmonary edema. Electronically signed by: Beny Lake M.D. 10/24/2016 7:43 AM Dictated Date/Time: 10/24/2016 7:42 AM
[2016-10-24] MEDS: MULTIVITAMIN TAB PO SCH (07:47)
[2016-10-24] MEDS: CHOLECALCIFEROL 1000 INTER.UNIT TAB PO SCH (07:48)
[2016-10-24] MEDS: CEROVITE ADV FORMULA TAB PO SCH ×2 (07:48→20:00)
[2016-10-24 07:49] LABS: HEMATOCRIT 25.4 % (42-52)
[2016-10-24] MEDS: NITROGLYCERIN 0.2 MG/HR PATCH TD SCH (07:50)
--- NOTE | 2016-10-24 09:04 | Progress Note ---
Progress Note Date of Service October 24, 2016. Progress Note Pt seen and evaluated this morning. He did not complete his prep due to increase blood loss, about 1/2 prep left. Is passing liquid stools. Had chest pain overnight - labs. Resolved with nitro. Currently no complaints, he would like to get colonoscopy today if able. Cardiology has not seen pt yet. Please keep him NPO, if cardiology clears for procedure we will attempt colonoscopy today.
--- NOTE | 2016-10-24 09:26 | Cardiology Follow-Up ---
Subjective General Date of Service: October 24, 2016. Pt evaluation today including: conversation w/ patient, conversation w/ family , chart review, lab review, review of studies History of Present Illness The patient is a 76 year old male Allergies Coded Allergies: No Known Allergies (Unverified , 10/21/16) Social History Smoking Status: Former Smoker Hx Tobacco Use In Past Year?: No (Quit > 20 yrs ago) Hx Alcohol Use - Type And Amou: No Hx Substance Use - Type And Am: No Problem List Medical Problems: (1) Rectal bleed Status: Acute Review of Systems Respiratory: No cough, No dyspnea at rest, No shortness of breath Cardiac: No chest pain, No edema, No palpitations Physical Exam Vital Signs Last Vital Signs Documentation Date Time Temp Pulse Resp B/P Pulse Ox O2 Delivery O2 Flow Rate FiO2 10/24/16 06:55 36.9 72 18 172/78 99 Nasal Cannula 2.0 Physical Exam Constitutional: Level of Distress: mild distress, chronically ill Lungs: Respiratory effort: no dyspnea Auscultation: breath sounds normal, no wheezing, no rales/crackles, no rhonchi Cardiovascular: Heart Auscultation: RRR, no murmurs, no rubs, no gallops Abdomen: Bowel Sounds: diminished Inspection & Palpation: soft, non-distended, no tenderness, guarding & rebound Extremities: no edema Assessment and Plan Assessment and Plan IMPRESSION: 1. Preoperative evaluation prior to colonoscopy secondary to a possible upper gastrointestinal bleed with melanotic stools and ongoing loss of blood even with transfusion. 2. Coronary artery disease, status post left internal mammary artery to left anterior descending artery November 2013. 3. 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 4. Status post single lead [employer] Ellipse defibrillator March. 5. History of difficulty maintaining his weight. EKG last night with mildly worse lateral ST depression; has only rarely used NTG at home since 2013 His episode last night was in the face of being upset, intolerance to Bowel Prep , anxiety and frustration over ongoing bleeding and recent esophageal dilation Increase Toprol to 25 mg BID He needs colonoscopy with ongoing bleeding Cardiac risk 3-4% with procedure; may proceed at above risk Keep Hgb > 8.0 ?? tagged RBC scan helpful if he is bleeding enough; with so much blood will anything be seen on colonoscopy; if delay in colonoscopy to improve prep then Suprep ?? Laboratory Results Last 24 Hours Test 10/23/16 15:25 10/23/16 21:55 10/24/16 04:35 10/24/16 05:27 Hemoglobin 8.3 g/dL 9.0 g/dL 8.8 g/dL 8.6 g/dL Hematocrit 23.6 % 25.0 % 24.2 % 25.4 % White Blood Count 13.49 K/uL Red Blood Count 2.74 M/uL Mean Corpuscular Volume 88.3 fL Mean Corpuscular Hemoglobin 32.1 pg Mean Corpuscular Hemoglobin Concent 36.4 g/dl Platelet Count 177 K/uL Mean Platelet Volume 10.9 fL Neutrophils (%) (Auto) 75.8 % Lymphocytes (%) (Auto) 6.8 % Monocytes (%) (Auto) 15.7 % Eosinophils (%) (Auto) 1.2 % Basophils (%) (Auto) 0.1 % Neutrophils # (Auto) 10.23 K/uL Lymphocytes # (Auto) 0.92 K/uL Monocytes # (Auto) 2.12 K/uL Eosinophils # (Auto) 0.16 K/uL Basophils # (Auto) 0.01 K/uL RDW Standard Deviation 47.6 fL RDW Coefficient of Variation 15.3 % Immature Granulocyte % (Auto) 0.4 % Immature Granulocyte # (Auto) 0.05 K/uL Polychromasia 1+ Rouleau 1+ Sodium Level 138 mmol/L Potassium Level 3.1 mmol/L Chloride Level 101 mmol/L Carbon Dioxide Level 29 mmol/L Anion Gap 8.0 mmol/L Blood Urea Nitrogen 23 mg/dl Creatinine 0.78 mg/dl Est Creatinine Clear Calc Drug Dose 65.2 ml/min Estimated GFR () 100.2 Estimated GFR (Non- 86.5 BUN/Creatinine Ratio 29.5 Random Glucose 119 mg/dl Calcium Level 7.8 mg/dl Magnesium Level 1.9 mg/dl Total Creatine Kinase 52 U/L Creatine Kinase MB 3.4 ng/ml Creatine Kinase MB Ratio 6.5 Troponin I 0.025 ng/ml Test 10/24/16 06:50 Hemoglobin 9.0 g/dL Hematocrit 24.3 % Troponin I 0.026 ng/ml
[2016-10-24] MEDS: METOPROLOL SUCC 25MG EXT REL TAB PO SCH ×2 (10:06→19:59)
[2016-10-24] MEDS ORDERED: LIDOCAINE HCL 2% 2 ML VIAL (20MG/ML) ONE (12:25)
[2016-10-24] MEDS ORDERED: ETOMIDATE 2 MG/ML 20 ML VIAL IV ONE (12:25)
--- NOTE | 2016-10-24 13:42 | GI REPORT ---
Procedure Date: 10/24/2016 1:03 PM Procedure: Colonoscopy Indications: Hematochezia Medicines: Monitored Anesthesia Care Complications: No immediate complications. Estimated blood loss: Minimal. Estimated Blood Loss: Estimated blood loss was minimal. Procedure: Pre-Anesthesia Assessment: - Prior to the procedure, a History and Physical was performed, and patient medications, allergies and sensitivities were reviewed. The patient's tolerance of previous anesthesia was reviewed. - The risks and benefits of the procedure and the sedation options and risks were discussed with the patient. All questions were answered and informed consent was obtained. - Patient identification and proposed procedure were verified prior to the procedure by the physician, the nurse and the moisture machine tender. The procedure was verified in the procedure room. - Pre-procedure physical examination revealed no contraindications to sedation. - ASA Grade Assessment: IV - A patient with severe systemic disease that is a constant threat to life. - After reviewing the risks and benefits, the patient was deemed in satisfactory condition to undergo the procedure. - The anesthesia plan was to use monitored anesthesia care (MAC). - Immediately prior to administration of medications, the patient was re-assessed for adequacy to receive sedatives. - The heart rate, respiratory rate, oxygen saturations, blood pressure, adequacy of pulmonary ventilation, and response to care were monitored throughout the procedure. - The physical status of the patient was re-assessed after the procedure. After I obtained informed consent, the scope was passed under direct vision. Throughout the procedure, the patient's blood pressure, pulse, and oxygen saturations were monitored continuously. The scope was introduced through the anus and advanced to the terminal ileum. The colonoscopy was performed with moderate difficulty due to multiple diverticula in the colon, poor bowel prep, significant looping and a tortuous colon. Successful completion of the procedure was aided by using manual pressure, withdrawing and reinserting the scope and withdrawing the scope and replacing with the pediatric colonoscope. The patient tolerated the procedure well. The quality of the bowel preparation was poor. Findings: The perianal and digital rectal examinations were normal. Pertinent negatives include normal sphincter tone. The terminal ileum appeared normal. Multiple small and large-mouthed diverticula were found in the entire colon. Despite a careful withdrawl with irrigation a bleeding site could not be identified. Old clotted blood was found in the entire colon. Internal hemorrhoids were found during retroflexion. The hemorrhoids were mild. Impression: - Preparation of the colon was poor. - The examined portion of the ileum was normal. - Severe diverticulosis in the entire examined colon. - Old blood in the entire examined colon. Recommendation: - Return patient to hospital heard for ongoing care. - Clear liquid diet today. - Consider a Tagged red blood cell study to assess for active bleeding (referral for IR if rebleeding occurs) Bert Neil D.O. Bert Neil, 10/24/2016 1:41:22 PM This report has been signed electronically. Note Initiated On: 10/24/2016 1:03 PM I attest to the content of the Intraoperative Record and orders documented therein, exceptions below
--- NOTE | 2016-10-24 14:38 | Anesthesiology Progress Note ---
Anesthesia Post Op Note Date & Time October 24, 2016 at 14:37 Vital Signs Pain Intensity: 3 Vital Signs Past 12 Hours Date Time Temp Pulse Resp B/P Pulse Ox O2 Delivery O2 Flow Rate FiO2 10/24/16 14:05 70 20 160/70 98 Room Air 10/24/16 13:55 69 20 147/75 98 Room Air 10/24/16 13:40 61 20 134/60 100 Room Air 10/24/16 12:29 36.9 89 18 152/74 100 Room Air 10/24/16 12:00 Room Air 10/24/16 11:58 36.6 75 16 150/79 97 Room Air 10/24/16 10:16 36.9 60 18 154/69 99 Room Air 10/24/16 10:05 60 154/69 10/24/16 08:00 Room Air 10/24/16 06:55 36.9 72 18 172/78 99 Nasal Cannula 2.0 10/24/16 04:59 36.4 80 18 158/87 96 Room Air 10/24/16 04:00 Room Air Notes Mental Status: alert / awake / arousable, participated in evaluation Pt Amnestic to Procedure: Yes Nausea / Vomiting: adequately controlled Pain: adequately controlled Airway Patency, RR, SpO2: stable & adequate BP & HR: stable & adequate Hydration State: stable & adequate Anesthetic Complications: no major complications apparent
--- NOTE | 2016-10-24 15:02 | Progress Note ---
Progress Note Date of Service October 24, 2016. Progress Note Colonoscopy results -- diverticulosis of the entire colon (poor preparation) -- no active bleeding noted (old blood / clot noted up to the right colon) -- normal terminal ileum Impression: patient most likely with a diverticular hemorrhage Recomendation: -- liquid diet -- if rebleeding occurs would suggest a tagged RBC study and IR referral -- Miralax 17 gm per day -- colace 100 mg per day
[2016-10-24 17:47] LABS: HEMATOCRIT 22.8 % (42-52)
--- NOTE | 2016-10-24 17:56 | Progress Note ---
Subjective Date of Service: October 24, 2016. Subjective Pt evaluation today including: conversation w/ patient, conversation w/ family , physical exam, chart review, lab review, conversation w/ [employer] sales consultant, review of inpatient medication list Problem List Medical Problems: (1) Rectal bleed Status: Acute Review of Systems Constitutional: No chills, No fatigue, No fever, No problem reported, No see HPI, No sweats, No weakness, No weight loss Eyes: No diplopia, No discharge, No eye pain, No problem reported, No redness, No see HPI, No worsening of vision ENT: No dental problems, No hearing loss, No nasal symptoms, No problem reported, No see HPI, No sore throat, No tinnitus, No trouble swallowing, No unusual epistaxis Respiratory: No cough, No dyspnea at rest, No dyspnea on exertion, No hemoptysis, No problem reported, No see HPI, No shortness of breath, No sputum, No wheezing Cardiac: No PND, No chest pain, No claudication, No edema, No orthopnea, No palpitations, No problem reported, No see HPI Abdomen: + GI bleeding, No constipation, No diarrhea, No nausea, No pain, No problem reported, No see HPI, No vomiting Musculoskeletal: No calf pain, No joint pain, No muscle pain, No problem reported, No see HPI, No swelling Male : No dysuria, No hematuria, No incontinence, No nocturia more than once/ night, No problem reported, No see HPI, No sexual dysfunction, No slowing stream , No urinary frequency Neurologic: No balance problems, No memory loss, No numbness/tingling, No paralysis, No problem reported, No see HPI, No vertigo, No weakness Psychiatric: No anhedonism, No anxiety, No depression symptoms, No insomnia, No problem reported, No see HPI, No substance abuse Heme: No abnormal bleeding/bruising, No clotting problems, No night sweats, No problem reported, No see HPI, No swollen lymph nodes Endo: No excessive thirst, No excessive urination, No fatigue, No problem reported, No see HPI Skin: No bleeding, No color change, No itch, No new/changing skin lesions, No problem reported, No rash, No see HPI Medications Current Inpatient Medications Medications (Trade) Dose Ordered Sig/Milton Route Start Time Stop Time Status Last Admin Dose Admin Acetaminophen (Tylenol Tab) 650 mg Q4H PRN PO 10/21/16 09:15 11/20/16 09:14 10/22/16 16:00 650 MG Al Hydrox/Mg Hydrox/Simethicone (Maalox Max Susp) 15 ml Q4H PRN PO 10/21/16 09:15 11/20/16 09:14 Magnesium Hydroxide (Milk Of Magnesia Susp) 30 ml Q6H PRN PO 10/21/16 09:15 11/20/16 09:14 Polyethylene (Miralax Powder Packet) 17 gm DAILY PRN PO 10/21/16 09:15 11/20/16 09:14 Ondansetron HCl (Zofran Inj) 4 mg Q6H PRN IV 10/21/16 09:15 11/20/16 09:14 10/22/16 17:39 4 MG Atorvastatin Calcium (Lipitor Tab) 40 mg HS PO 10/21/16 21:00 11/20/16 20:59 10/23/16 20:41 40 MG Cholecalciferol (Vitamin D Tab) 1,000 inter.unit DAILY PO 10/22/16 08:00 11/21/16 08:59 10/22/16 07:48 1,000 INTER.UNIT Multivitamins (Multivitamin Tab) 1 tab DAILY PO 10/22/16 08:00 11/21/16 08:59 10/22/16 07:48 1 TAB Nitroglycerin (Nitro-Dur 0.2 Mg/Hr Patch) 1 patch DAILY TD 10/21/16 11:30 11/20/16 11:29 10/24/16 07:50 1 PATCH Multivitamins/ Minerals (Multivitamin W/ Minerals Tab) 1 tab BID PO 10/21/16 20:00 11/20/16 20:59 10/23/16 20:42 1 TAB Senna/Docusate Sodium (Senokot S Tab) 2 tab HS PO 10/21/16 21:00 11/20/16 20:59 10/21/16 21:02 2 TAB Miscellaneous (Remove Nitro-Dur Patch) 1 ea DAILY@21 N/A 10/21/16 21:00 11/20/16 20:59 10/23/16 20:42 1 EA Miscellaneous 1 ea 1 ea PRN PRN N/A 10/21/16 13:15 10/21/17 13:14 Pantoprazole Sodium/Dextrose (Protonix Inj/D5 100ml) 100 ml @ 20 mls/hr Q5H IV 10/22/16 14:45 11/21/16 14:44 10/24/16 17:49 20 MLS/HR Morphine Sulfate (MoRPHine SULFATE INJ) 1 mg Q4H PRN IV 10/22/16 17:30 11/05/16 17:29 10/22/16 17:40 1 MG Metoprolol Succinate (Toprol Xl Tab) 25 mg BID PO 10/24/16 10:00 11/23/16 09:59 10/24/16 10:06 25 MG Objective Vital Signs Date Time Temp Pulse Resp B/P Pulse Ox O2 Delivery O2 Flow Rate FiO2 10/24/16 15:23 36.5 55 18 139/74 94 Room Air 10/24/16 14:52 36.4 56 20 140/63 97 Room Air 10/24/16 14:05 70 20 160/70 98 Room Air 10/24/16 13:55 69 20 147/75 98 Room Air 10/24/16 13:40 61 20 134/60 100 Room Air 10/24/16 12:29 36.9 89 18 152/74 100 Room Air 10/24/16 12:00 Room Air 10/24/16 11:58 36.6 75 16 150/79 97 Room Air 10/24/16 10:16 36.9 60 18 154/69 99 Room Air 10/24/16 10:05 60 154/69 10/24/16 08:00 Room Air 10/24/16 06:55 36.9 72 18 172/78 99 Nasal Cannula 2.0 10/24/16 04:59 36.4 80 18 158/87 96 Room Air 10/24/16 04:00 Room Air 10/24/16 00:05 Room Air 10/23/16 23:46 36.2 76 18 172/93 98 Room Air 10/23/16 20:00 Room Air 10/23/16 19:55 36.3 77 18 169/79 97 10/23/16 19:18 36.6 80 18 165/75 97 Room Air 10/23/16 18:25 36.7 79 18 156/71 97 10/23/16 18:24 36.7 79 18 156/71 10/23/16 17:55 36.5 77 20 163/81 99 Physical Exam General Appearance: WD/WN, no apparent distress Eyes: normal inspection, EOMI ENT: normal ENT inspection, hearing grossly normal Neck: supple Respiratory/Chest: chest non-tender, lungs clear, normal breath sounds, no respiratory distress, no accessory muscle use Cardiovascular: regular rate, rhythm, no edema, no gallop, no JVD, no murmur Abdomen: normal bowel sounds, non tender, soft, no organomegaly Extremities: normal range of motion, non-tender, normal inspection, no pedal edema, no calf tenderness Neurologic/Psychiatric: cost accounting manager II-XII nml as tested, no motor/sensory deficits, alert, normal mood/affect, oriented x 3 Skin: normal color, warm/dry, no rash Laboratory Results Last 24 Hours Test 10/23/16 21:55 10/24/16 04:35 10/24/16 05:27 10/24/16 06:50 Hemoglobin 9.0 g/dL 8.8 g/dL 8.6 g/dL 9.0 g/dL Hematocrit 25.0 % 24.2 % 25.4 % 24.3 % White Blood Count 13.49 K/uL Red Blood Count 2.74 M/uL Mean Corpuscular Volume 88.3 fL Mean Corpuscular Hemoglobin 32.1 pg Mean Corpuscular Hemoglobin Concent 36.4 g/dl Platelet Count 177 K/uL Mean Platelet Volume 10.9 fL Neutrophils (%) (Auto) 75.8 % Lymphocytes (%) (Auto) 6.8 % Monocytes (%) (Auto) 15.7 % Eosinophils (%) (Auto) 1.2 % Basophils (%) (Auto) 0.1 % Neutrophils # (Auto) 10.23 K/uL Lymphocytes # (Auto) 0.92 K/uL Monocytes # (Auto) 2.12 K/uL Eosinophils # (Auto) 0.16 K/uL Basophils # (Auto) 0.01 K/uL RDW Standard Deviation 47.6 fL RDW Coefficient of Variation 15.3 % Immature Granulocyte % (Auto) 0.4 % Immature Granulocyte # (Auto) 0.05 K/uL Polychromasia 1+ Rouleau 1+ Sodium Level 138 mmol/L Potassium Level 3.1 mmol/L Chloride Level 101 mmol/L Carbon Dioxide Level 29 mmol/L Anion Gap 8.0 mmol/L Blood Urea Nitrogen 23 mg/dl Creatinine 0.78 mg/dl Est Creatinine Clear Calc Drug Dose 65.2 ml/min Estimated GFR () 100.2 Estimated GFR (Non- 86.5 BUN/Creatinine Ratio 29.5 Random Glucose 119 mg/dl Calcium Level 7.8 mg/dl Magnesium Level 1.9 mg/dl Total Creatine Kinase 52 U/L Creatine Kinase MB 3.4 ng/ml Creatine Kinase MB Ratio 6.5 Troponin I 0.025 ng/ml 0.026 ng/ml Test 10/24/16 17:35 Hemoglobin 8.4 g/dL Hematocrit 22.8 % Assessment and Plan Gastrointestinal bleed / likely diverticular in origin Acute blood loss anemia / Hgb drop from 9.6 on admission to 8.3 Chronic systolic ischemic cardiomyopathy, not in exacerbation CAD Hx of valvular disease S/P valvuloplasty Chronic cholecystitis GERD Mild leukocytosis Plan: S/P EGD 10/23 result as below: Z-line irregular, 38 cm from the incisors. - No endoscopic esophageal abnormality to explain patient's dysphagia. Esophagus dilated to 51 Fr. - Small hiatal hernia - Normal stomach. - Normal examined duodenum. S/P colonoscopy 10/24 results as below Impression: - Preparation of the colon was poor. - The examined portion of the ileum was normal. - Severe diverticulosis in the entire examined colon. - Old blood in the entire examined colon. Recommendation: - Return patient to hospital heard for ongoing care. - Clear liquid diet today. - Consider a Tagged red blood cell study to assess for active bleeding (referral for IR if rebleeding occurs) patient is aware that if bleeding re occur he will have to be referred to place that has IR for possible embolization, repeat colonoscopy will not be helpful S/P transfused total of 2 units of PRBCs Consult quarry extraction worker for clearance appreciated discontinue PPI drip Clear liquids today then advance slowly from tomorrow SCD boot for DVT prophylaxis continue home meds except ASA as per GI if no bleeding for 2 days can be restarted on his baby aspirin (does not take plavix at home)
[2016-10-24] MEDS: DOCUSATE SODIUM/SENNA 50/8.6MG TAB PO SCH (19:59)
[2016-10-24] MEDS: ATORVASTATIN 40 MG TAB PO SCH (19:59)
[2016-10-24] MEDS: PANTOprazole INJ 40 MG in SYRINGE 0 ML IV SCH (20:00)
[2016-10-25] VITALS: O2SAT 95
[2016-10-25 04:00] VITALS: BP 168/77; PULSE 71; TEMP 36.9; O2SAT 95; O2SAT 97
[2016-10-25 06:07] LABS: HEMATOCRIT 25.2 % (42-52)
[2016-10-25 07:44] VITALS: BP 160/74; PULSE 67; TEMP 36.6; O2SAT 95
[2016-10-25] MEDS: PANTOprazole INJ 40 MG in SYRINGE 0 ML IV SCH (09:02)
[2016-10-25] MEDS: CEROVITE ADV FORMULA TAB PO SCH (09:07)
[2016-10-25] MEDS: MULTIVITAMIN TAB PO SCH (09:08)
[2016-10-25] MEDS: CHOLECALCIFEROL 1000 INTER.UNIT TAB PO SCH (09:08)
[2016-10-25] MEDS: METOPROLOL SUCC 25MG EXT REL TAB PO SCH (09:08)
[2016-10-25] MEDS: NITROGLYCERIN 0.2 MG/HR PATCH TD SCH (09:09)
--- NOTE | 2016-10-25 09:21 | Cardiology Follow-Up ---
Subjective General Date of Service: October 25, 2016. Pt evaluation today including: conversation w/ patient, chart review, lab review, review of studies History of Present Illness The patient is a 76 year old male Allergies Coded Allergies: No Known Allergies (Unverified , 10/24/16) Social History Smoking Status: Former Smoker Hx Tobacco Use In Past Year?: No (Quit > 20 yrs ago) Hx Alcohol Use - Type And Amou: No Hx Substance Use - Type And Am: No Problem List Medical Problems: (1) Rectal bleed Status: Acute Review of Systems Respiratory: No cough, No dyspnea at rest, No dyspnea on exertion, No shortness of breath Cardiac: + problem reported, No chest pain, No edema, No palpitations Additional ROS Details: no abd pain Physical Exam Vital Signs Last Vital Signs Documentation Date Time Temp Pulse Resp B/P Pulse Ox O2 Delivery O2 Flow Rate FiO2 10/25/16 07:44 36.6 67 16 160/74 95 Room Air 10/24/16 06:55 2.0 Physical Exam Constitutional: Level of Distress: mild distress, chronically ill Lungs: Respiratory effort: no dyspnea Auscultation: breath sounds normal, no wheezing, no rales/crackles, no rhonchi Cardiovascular: Heart Auscultation: RRR, no murmurs, no rubs, no gallops Abdomen: Bowel Sounds: diminished Inspection & Palpation: soft, non-distended, no tenderness, guarding & rebound Extremities: no edema Assessment and Plan Assessment and Plan IMPRESSION: 1. LGIB secondary to severe diverticular dz 2. Coronary artery disease, status post left internal mammary artery to left anterior descending artery November 2013. 3. 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 4. Status post single lead [employer] defibrillator March. 5. History of difficulty maintaining his weight. Increased Toprol to 25 mg BID (increased dose from home) Add lisinopril back 5mg (Increased from home) No Aldactone for now as skin turgor still low and likely dry Lasix PRN at home as previously Keep Hgb > 8.0 tagged RBC scan helpful if he bleeds again; Laboratory Results Last 24 Hours Test 10/24/16 17:35 10/25/16 05:42 Hemoglobin 8.4 g/dL 8.8 g/dL Hematocrit 22.8 % 25.2 %
[2016-10-25] MEDS ORDERED: LISINOPRIL 5 MG TAB PO SCH (09:30)
[2016-10-25 10:09] VITALS: BP 194/82; PULSE 74
[2016-10-25 11:28] VITALS: BP 163/73; PULSE 73; TEMP 36.6; O2SAT 98
[2016-10-25] MEDS ORDERED: LSN5 PO (12:30)
[2016-10-25] MEDS ORDERED: TPRSR25 PO (12:30)
[2016-10-25 12:34] LABS: HEMATOCRIT 25.4 % (42-52)
--- NOTE | 2016-10-25 12:59 | Discharge Instructions ---
Discharge Instructions Date of Service October 25, 2016. Admission Reason for Admission: Gi Bleed Discharge Discharge Diagnosis / Problem: Severe diverticular bleed, CAD Discharge Goals Goal(s): Decrease discomfort, Improve function, Increase independence, Improve disease control, Learn about illness, Diagnostic testing, Prevent Disease Progression Activity Recommendations Activity Limitations: resume your previous activity Shower/Bathe: no limitations . Instructions / Follow-Up Instructions / Follow-Up Patient to be discharged home Admitted with diverticular GI bleed Please hold aspirin for next few days, can resume on following saturday Please note cardiology recommendations with changes in medications: lisinopril 5 mg once daily and metoprolol 25 mg twice daily Prescriptions sent electronically to pharmacy Please follow up with Julia Thomas in 1-2 weeks Current Hospital Diet Patient's current hospital diet: Regular Diet Discharge Diet Recommended Diet: Regular Diet Procedures Procedures Performed: COLON Pending Studies Studies pending at discharge: no Medical Emergencies . Who to Call and When: Medical Emergencies: If at any time you feel your situation is an emergency, please call 911 immediately. . Non-Emergent Contact Non-Emergency issues call your: Primary Care Provider Call Non-Emergent contact if: you have any medication questions (worsening blood in stools) . . "Provider Documentation" section prepared by Jc Pierre. . VTE Core Measure Inpt VTE Proph given/why not?: Contraindicated
[2016-10-25 13:38] VITALS: BP 163/73; PULSE 73; TEMP 36.6; O2SAT 98
--- NOTE | 2016-10-25 15:36 | Discharge Summary ---
Discharge Summary Date of Service October 25, 2016. Discharge Summary Admission Date: October 22, 2016 at 17:18 Discharge Date: October 25, 2016 Discharge Disposition: Home Principal Diagnosis: Severe diverticular bleed Consultations: GI Medication Reconciliation New Medications: Lisinopril (Lisinopril) 5 Mg Tab 5 MG PO QAM for 30 Days, #30 TAB Metoprolol Succinate (Metoprolol Succinate ER) 25 Mg Tabcr 25 MG PO BID for 30 Days, #60 TABS Continued Medications: Aspirin (Aspirin Ec) 81 Mg Tab 81 MG PO DAILY Atorvastatin (Lipitor) 40 Mg Tab 40 MG PO HS, TAB Cholecalciferol (Vitamin D3) 1,000 Inter.unit Tab 1 TAB PO DAILY Furosemide (Lasix) 20 Mg Tab 20 MG PO DAILY, TAB Multivitamin (Multivitamin) Tab 1 TAB PO DAILY, TAB Nitroglycerin (Nitro-Dur) 0.2 Mg/Hr Dis 1 PATCH TD ONAMOFFPM Ocuvite Preservision (Ocuvite Preservision) 1 Tab Tab 1 TAB PO BID, TAB Omeprazole (Prilosec) 20 Mg Capcr 20 MG PO BID, CAP Sennosides-Docusate Sodium (Senna S) 1 Tab Tab 2 TAB PO HS Discontinued Medications: Lisinopril (Zestril) 2.5 Mg Tab 2.5 MG PO MWF Metoprolol Succinate (Toprol Xl) 25 Mg Tabcr 25 MG PO HS, #30 TAB Spironolactone (Aldactone) 25 Mg Tab 25 MG PO DAILY, TAB Take at bedtime Discharge Exam Review of Systems: Constitutional: No chills, No fever Respiratory: No cough, No sputum Cardiovascular: No chest pain, No orthopnea Abdomen: No diarrhea, No nausea, No pain, No vomiting Musculoskeletal: No joint pain, No muscle pain Genitourinary - Male: No dysuria, No hematuria, No urinary frequency Physical Exam: General Appearance: WD/WN, no apparent distress Neck: supple, no adenopathy Respiratory/Chest: lungs clear, normal breath sounds Cardiovascular: no edema, no gallop Abdomen / GI: non tender, soft Neurologic/Psychiatric: alert, oriented x 3 Hospital Course Gastrointestinal bleed / likely diverticular in origin Acute blood loss anemia / Hgb drop from 9.6 on admission to 8.3 Chronic systolic ischemic cardiomyopathy, not in exacerbation CAD Hx of valvular disease S/P valvuloplasty Chronic cholecystitis GERD Mild leukocytosis Plan: S/P EGD 10/23 result as below: Z-line irregular, 38 cm from the incisors. - No endoscopic esophageal abnormality to explain patient's dysphagia. Esophagus dilated to 51 Fr. - Small hiatal hernia - Normal stomach. - Normal examined duodenum. S/P colonoscopy 10/24 results as below Impression: - Preparation of the colon was poor. - The examined portion of the ileum was normal. - Severe diverticulosis in the entire examined colon. - Old blood in the entire examined colon. Recommendation: - Return patient to hospital heard for ongoing care. - Clear liquid diet today. - Consider a Tagged red blood cell study to assess for active bleeding (referral for IR if rebleeding occurs) patient is aware that if bleeding re occur he will have to be referred to place that has IR for possible embolization, repeat colonoscopy will not be helpful S/P transfused total of 2 units of PRBCs Consult slitter creaser slotter helper for clearance appreciated discontinue PPI drip SCD boot for DVT prophylaxis continue home meds as per GI if no bleeding for 2 days can be restarted on his baby aspirin (does not take plavix at home) Total Time Spent: Greater than 30 minutes This includes examination of the patient, discharge planning, medication reconciliation, and communication with other providers. Discharge Instructions Please refer to the electronic Patient Visit Report (Discharge Instructions) for additional information. Additional Copies To Odalsi Thomas M.D.
== END 2016-10-25 14:15 | disposition home health service (06) | DRG 378 ==
LOC: ENRESERVTM → ENRESERVDT → C.EDB 07:38 → C.4E 09:20 → OBSVTOIN 17:18 → INTOOBSV 17:18 → OBSVTOIN 10-22 17:18 → C.MED 10-22 18:30
PROVIDERS: ADMIT Family Medicine; ATTEND Hospitalist
PROC: 0D758ZZ Dilation of Esophagus, Via Natural or Artificial Opening Endoscopic (ICD-10-PCS; principal; 2016-10-22)
PROC: 0DJD8ZZ Inspection of Lower Intestinal Tract, Via Natural or Artificial Opening Endoscopic (ICD-10-PCS; 2016-10-24)
DX: K57.31 Diverticulosis of large intestine without perforation or abscess with bleeding (principal); D62 Acute posthemorrhagic anemia; I25.10 Atherosclerotic heart disease of native coronary artery without angina pectoris; I25.5 Ischemic cardiomyopathy; R13.10 Dysphagia, unspecified; K21.9 Gastro-esophageal reflux disease without esophagitis; K81.1 Chronic cholecystitis; K44.9 Diaphragmatic hernia without obstruction or gangrene; E78.5 Hyperlipidemia, unspecified; Z95.5 Presence of coronary angioplasty implant and graft; K22.70 Barrett's esophagus without dysplasia; I50.9 Heart failure, unspecified; Z95.810 Presence of automatic (implantable) cardiac defibrillator